=== PATIENT | male | born 1930 | race Caucasian/White ===

== ENCOUNTER 2021-06-30 13:45 | Inpatient (IN) | payer MEDICARE, BC ==
[2021-06-30 15:30] LABS: #Eosinphils 0.1 thou/uL (0.0-0.7); #Lymphocytes 1.8 thou/uL (1.20-3.40); #Monocytes 1.2 thou/uL (0.11-0.59); #Neutrophils 9.3 thou/uL (1.40-6.50); %Basophils 0.3 % (0.0-1.0); %Eosinophils 0.6 % (0.0-10.0); %Lymphocytes 14.6 % (21.0-51.0); %Monocytes 9.3 % (0.0-10.0); %Neutrophils 75.2 % (42.0-75.0); Hemoglobin 11.1 g/dL (14.0-18.0); Mean Corpuscular HGB CONC 31.7 g/dL (32.0-36.0); Mean Corpuscular Hemoglobin 31.3 pg (27.0-31.0); Mean Corpuscular Volume 98.7 fL (78.0-98.0); Mean Platelet Volume 6.7 fL (7.4-10.4); Platelet Count 466 thou/uL (130-400); RBC Distribution Width 16.2 % (11.5-14.5); Red Blood Cell (RBC) Count 3.53 mill/uL (4.70-6.10); White Blood Cell (WBC) Count 12.3 thou/uL (4.8-10.8)
[2021-06-30 16:00] LABS: ALT (SGPT) 63 U/L (8-55); AST (SGOT) 86 U/L (5-34); Albumin 2.5 g/dL (3.4-4.8); Alkaline Phosphatase 126 U/L (40-110); Anion Gap 18 mmol/L (10-20); Bilirubin, Total 0.6 mg/dL (0.2-1.2); Calc. Creatinine Clearance 0 mL/min (70-130); Calcium 8.5 mg/dL (7.8-10.44); Carbon Dioxide 30 mmol/L (23-31); Chloride 107 mmol/L (98-107); Globulin 3.9 g/dL (2.4-3.5); Glucose 186 mg/dL (83-110); Potassium 4.6 mmol/L (3.5-5.1); Protein, Total 6.4 g/dL (5.8-8.1); Sodium 150 mmol/L (136-145)
[2021-06-30 16:11] LABS: BUN (Urea Nitrogen) 126 mg/dL (8.4-25.7)
[2021-06-30] MEDS ORDERED: Lorazepam 2 MG/ML VIAL ONE (17:47)
[2021-06-30 18:01] LABS: SARS-CoV-2 NAA Rapid Test Not Detected (NotDetected)
[2021-06-30] MEDS ORDERED: Piperacillin/Tazobactam 3.375 GM VIAL ONE (18:37)
[2021-06-30 18:50] LABS: Bacteria/HPF 4+ HPF (None Seen); Bilirubin Negative (Negative); Blood, Urine 3+ (Negative); Clarity Extra Turbid (Clear); Glucose, Urine (Dipstick) Normal (Negative); Ketone, Urine Negative (Negative); Leukocyte 500 Leu/uL (Negative); Nitrite Negative (Negative); Protein, Urine (Dipstick) 50 mg/dL (Neg-Trace); RBC/HPF Greater than 50 HPF (0-3); Specific Gravity, Urine 1.008 (1.002-1.036); Squamous Epithelial None Seen HPF (0-3); Urobilinogen Normal mg/dL (Less than 2); WBC/HPF Greater than 50 HPF (0-3)
[2021-06-30] MEDS ORDERED: Sodium Chloride 0.9% 500 ML IV SCH ×2 (20:00→21:15)
[2021-06-30] MEDS ORDERED: Acetaminophen 325 MG TAB PO PRN (20:00)
[2021-06-30] MEDS ORDERED: Ondansetron ODT 4 MG TAB SL PRN (20:00)
[2021-06-30] MEDS ORDERED: Ondansetron PF 4 MG/2 ML Vial IVP PRN ×2 (20:00→20:25)
[2021-06-30] MEDS ORDERED: HumaLOG 300 UNITS/3 ML VIAL SC PRN (20:28)
[2021-06-30] MEDS ORDERED: Dextrose 5% in Water 1,000 ML IV PRN (20:28)
[2021-06-30] MEDS ORDERED: Dextrose 50% Abboject 50 ML SYRINGE SLOW IVP PRN (20:28)
[2021-06-30] MEDS ORDERED: Sodium Chloride 0.9% 1,000 ML IV SCH (20:30)
[2021-06-30] MEDS ORDERED: Pharmacy to Dose VANCOMYCIN AND MEROPENEM IVPB PRN (21:09)
[2021-06-30] MEDS ORDERED: Sodium Chloride 0.9% 500 ML IVPB SCH (21:30)
[2021-06-30] MEDS: Sodium Chloride 0.9% 1,000 ML IV SCH (22:00)
[2021-06-30] MEDS: Heparin 5,000 UNITS/ML VIAL SC SCH (22:36)
[2021-06-30] MEDS ORDERED: Piperacillin/Tazobactam 3.375 GM in Sodium Chloride 0.9% 100 ML IVPB SCH (23:00)
[2021-06-30] MEDS ORDERED: Meropenem 1 GM in Sodium Chloride 0.9% 100 ML IVPB SCH (23:00)
[2021-06-30] MEDS ORDERED: Vancomycin 1.5 GRAM/300 ML BAG 1.5 GM in Premix Bag 1 BAG IVPB SCH (23:59)
[2021-07-01 00:01] LABS: Lactic Acid 4.8 mmol/L (0.5-2.2)
[2021-07-01] MEDS ORDERED: Sodium Chloride 0.9% 500 ML IVPB SCH (02:30)
[2021-07-01] MEDS ORDERED: Norepinephrine 8 MG/0.9% NS 250 ML IVPB SCH (04:15)
[2021-07-01 04:16] LABS: Anion Gap 13 mmol/L (10-20); Calc. Creatinine Clearance 28 mL/min (70-130); Calcium 7.7 mg/dL (7.8-10.44); Carbon Dioxide 28 mmol/L (23-31); Chloride 114 mmol/L (98-107); Glucose 215 mg/dL (83-110); Sodium 151 mmol/L (136-145)
[2021-07-01 04:19] LABS: ALT (SGPT) 58 U/L (8-55); AST (SGOT) 78 U/L (5-34); Alkaline Phosphatase 116 U/L (40-110); Bilirubin, Direct 0.4 mg/dL (0.1-0.3); Bilirubin, Total 0.5 mg/dL (0.2-1.2); Lipase 12 U/L (8-78); Protein, Total 5.3 g/dL (5.8-8.1)
[2021-07-01 04:23] LABS: Band 8 % (5-11); Eosinophils 3 % (0-10); Hemoglobin 8.9 g/dL (14.0-18.0); Hypochromia SLIGHT = 6-15 cells (100X) (0-5/hpf); MDiff Complete? YES; Mean Corpuscular HGB CONC 31.6 g/dL (32.0-36.0); Mean Corpuscular Hemoglobin 31.5 pg (27.0-31.0); Mean Corpuscular Volume 99.5 fL (78.0-98.0); Mean Platelet Volume 6.6 fL (7.4-10.4); Monocytes 16 % (0-10); Neutrophil 73 % (42-75); Platelet Count 382 thou/uL (130-400); Platelet Morphology Comment Appears Adequate; RBC Distribution Width 16.4 % (11.5-14.5); Red Blood Cell (RBC) Count 2.82 mill/uL (4.70-6.10); White Blood Cell (WBC) Count 19.4 thou/uL (4.8-10.8)
[2021-07-01 04:27] LABS: BUN (Urea Nitrogen) 117 mg/dL (8.4-25.7)
[2021-07-01] MEDS ORDERED: Norepinephrine 8 MG in Dextrose 5% in Water 242 ML IVPB PRN (04:30)
[2021-07-01] MEDS: Heparin 5,000 UNITS/ML VIAL SC SCH ×3 (08:36→21:21)
[2021-07-01] MEDS: Dextrose 5 %-0.45 % NaCl 1,000 ML IV SCH ×3 (08:37→21:22)
[2021-07-01] MEDS: Meropenem 1 GM in Sodium Chloride 0.9% 100 ML IVPB SCH ×2 (09:21→21:20)
[2021-07-01] MEDS: Pantoprazole 40 MG VIAL IVP SCH (10:49)
[2021-07-01] MEDS: Sodium Chloride 0.9% 1,000 ML IV SCH (10:50)
[2021-07-02] MEDS: Vancomycin HCl 750 MG in Sodium Chloride 0.9% 250 ML 250 ML IVPB SCH ×2 (00:15→23:45)
[2021-07-02] MEDS: Dextrose 5 %-0.45 % NaCl 1,000 ML IV SCH ×4 (06:03→19:56)
[2021-07-02 07:00] LABS: #Eosinphils 0.2 thou/uL (0.0-0.7); #Lymphocytes 1.3 thou/uL (1.20-3.40); #Monocytes 0.9 thou/uL (0.11-0.59); %Basophils 0.1 % (0.0-1.0); %Eosinophils 2.3 % (0.0-10.0); %Lymphocytes 13.9 % (21.0-51.0); %Monocytes 9.3 % (0.0-10.0); %Neutrophils 74.4 % (42.0-75.0); Hemoglobin 8.7 g/dL (14.0-18.0); Mean Corpuscular HGB CONC 31.4 g/dL (32.0-36.0); Mean Corpuscular Hemoglobin 31.1 pg (27.0-31.0); Mean Corpuscular Volume 98.8 fL (78.0-98.0); Mean Platelet Volume 6.5 fL (7.4-10.4); Platelet Count 340 thou/uL (130-400); RBC Distribution Width 16.3 % (11.5-14.5); Red Blood Cell (RBC) Count 2.81 mill/uL (4.70-6.10); White Blood Cell (WBC) Count 9.4 thou/uL (4.8-10.8)
[2021-07-02 07:20] LABS: Anion Gap 14 mmol/L (10-20); BUN (Urea Nitrogen) 76 mg/dL (8.4-25.7); Calc. Creatinine Clearance 44 mL/min (70-130); Calcium 7.5 mg/dL (7.8-10.44); Carbon Dioxide 22 mmol/L (23-31); Chloride 118 mmol/L (98-107); Glucose 171 mg/dL (83-110); Sodium 151 mmol/L (136-145)
[2021-07-02 07:26] LABS: Potassium 2.9 mmol/L (3.5-5.1)
[2021-07-02] MEDS: Heparin 5,000 UNITS/ML VIAL SC SCH ×3 (09:23→20:01)
[2021-07-02] MEDS: Meropenem 1 GM in Sodium Chloride 0.9% 100 ML IVPB SCH ×2 (09:24→20:01)
[2021-07-02] MEDS: Pantoprazole 40 MG VIAL IVP SCH (10:42)
[2021-07-02] MEDS: Acetaminophen 325 MG TAB PO PRN (20:03)
[2021-07-02 23:24] LABS: Vancomycin, Trough 14.8 ug/mL
[2021-07-03] MEDS: Dextrose 5 %-0.45 % NaCl 1,000 ML IV SCH ×3 (03:16→22:22)
[2021-07-03 06:37] LABS: #Eosinphils 0.2 thou/uL (0.0-0.7); #Lymphocytes 1.9 thou/uL (1.20-3.40); #Monocytes 0.7 thou/uL (0.11-0.59); #Neutrophils 5.6 thou/uL (1.40-6.50); %Basophils 0.1 % (0.0-1.0); %Eosinophils 1.8 % (0.0-10.0); %Lymphocytes 22.3 % (21.0-51.0); %Monocytes 8.8 % (0.0-10.0); %Neutrophils 66.9 % (42.0-75.0); Mean Corpuscular HGB CONC 31.9 g/dL (32.0-36.0); Mean Corpuscular Hemoglobin 31.1 pg (27.0-31.0); Mean Corpuscular Volume 97.5 fL (78.0-98.0); Mean Platelet Volume 6.4 fL (7.4-10.4); Platelet Count 300 thou/uL (130-400); RBC Distribution Width 16.4 % (11.5-14.5); White Blood Cell (WBC) Count 8.3 thou/uL (4.8-10.8)
[2021-07-03 07:02] LABS: ALT (SGPT) 59 U/L (8-55); AST (SGOT) 69 U/L (5-34); Alkaline Phosphatase 111 U/L (40-110); Anion Gap 12 mmol/L (10-20); BUN (Urea Nitrogen) 41 mg/dL (8.4-25.7); Bilirubin, Total 0.5 mg/dL (0.2-1.2); Calc. Creatinine Clearance 64 mL/min (70-130); Calcium 7.2 mg/dL (7.8-10.44); Carbon Dioxide 22 mmol/L (23-31); Chloride 116 mmol/L (98-107); Globulin 3.1 g/dL (2.4-3.5); Glucose 115 mg/dL (83-110); Protein, Total 5.1 g/dL (5.8-8.1); Sodium 147 mmol/L (136-145)
[2021-07-03 07:06] LABS: Potassium 2.6 mmol/L (3.5-5.1)
[2021-07-03] MEDS: Heparin 5,000 UNITS/ML VIAL SC SCH ×3 (08:55→20:03)
[2021-07-03] MEDS: Meropenem 1 GM in Sodium Chloride 0.9% 100 ML IVPB SCH ×2 (09:07→20:02)
[2021-07-03] MEDS ORDERED: Potassium Chloride 40 MEQ in Sodium Chloride 0.9% 250 ML 250 ML IVPB SCH (09:20)
[2021-07-03] MEDS: Pantoprazole 40 MG VIAL IVP SCH (10:41)
[2021-07-03] MEDS: Vancomycin HCl 750 MG in Sodium Chloride 0.9% 250 ML 250 ML IVPB SCH (23:13)
[2021-07-04] MEDS: Acetaminophen 325 MG TAB PO PRN (00:05)
[2021-07-04] MEDS: Dextrose 5 %-0.45 % NaCl 1,000 ML IV SCH ×2 (06:47→13:33)
[2021-07-04 07:49] LABS: #Eosinphils 0.2 thou/uL (0.0-0.7); #Lymphocytes 1.8 thou/uL (1.20-3.40); #Monocytes 0.6 thou/uL (0.11-0.59); #Neutrophils 5.3 thou/uL (1.40-6.50); %Basophils 0.1 % (0.0-1.0); %Eosinophils 2.1 % (0.0-10.0); %Lymphocytes 23.5 % (21.0-51.0); %Monocytes 7.1 % (0.0-10.0); %Neutrophils 67.1 % (42.0-75.0); Hemoglobin 8.3 g/dL (14.0-18.0); Mean Corpuscular Hemoglobin 30.8 pg (27.0-31.0); Mean Corpuscular Volume 96.1 fL (78.0-98.0); Mean Platelet Volume 6.6 fL (7.4-10.4); Platelet Count 258 thou/uL (130-400); RBC Distribution Width 16.2 % (11.5-14.5); White Blood Cell (WBC) Count 7.8 thou/uL (4.8-10.8)
[2021-07-04] MEDS: Meropenem 1 GM in Sodium Chloride 0.9% 100 ML IVPB SCH (07:58)
[2021-07-04] MEDS: Pantoprazole 40 MG VIAL IVP SCH (07:59)
[2021-07-04] MEDS: Heparin 5,000 UNITS/ML VIAL SC SCH ×3 (08:00→20:09)
[2021-07-04 08:04] LABS: Anion Gap 10 mmol/L (10-20); BUN (Urea Nitrogen) 22 mg/dL (8.4-25.7); Calc. Creatinine Clearance 75 mL/min (70-130); Calcium 6.7 mg/dL (7.8-10.44); Carbon Dioxide 23 mmol/L (23-31); Chloride 114 mmol/L (98-107); Glucose 139 mg/dL (83-110); Sodium 144 mmol/L (136-145)
[2021-07-04 08:08] LABS: Potassium 2.7 mmol/L (3.5-5.1)
[2021-07-04] MEDS ORDERED: Electrolyte Replacement Protocol 1 EACH FS SCH (08:30)
[2021-07-04] MEDS: Potassium Chloride 40 MEQ in Sodium Chloride 0.9% 250 ML 250 ML IVPB SCH ×2 (10:03→13:33)
[2021-07-04] MEDS ORDERED: Meropenem 1 GM in Sodium Chloride 0.9% 100 ML IVPB SCH (16:00)
[2021-07-04] MEDS ORDERED: Potassium Chloride 20 MEQ TAB PO SCH (17:30)
[2021-07-04 23:33] LABS: Vancomycin, Trough 15.4 ug/mL
[2021-07-04] MEDS: Vancomycin HCl 750 MG in Sodium Chloride 0.9% 250 ML 250 ML IVPB SCH (23:47)
[2021-07-05] MEDS: Meropenem 1 GM in Sodium Chloride 0.9% 100 ML IVPB SCH ×3 (02:23→17:43)
[2021-07-05] MEDS: Dextrose 5 %-0.45 % NaCl 1,000 ML IV SCH ×4 (02:56→23:55)
[2021-07-05 06:43] LABS: #Eosinphils 0.2 thou/uL (0.0-0.7); #Lymphocytes 1.8 thou/uL (1.20-3.40); #Monocytes 0.8 thou/uL (0.11-0.59); #Neutrophils 7.6 thou/uL (1.40-6.50); %Basophils 0.1 % (0.0-1.0); %Eosinophils 1.6 % (0.0-10.0); %Lymphocytes 17.6 % (21.0-51.0); %Monocytes 7.8 % (0.0-10.0); %Neutrophils 72.9 % (42.0-75.0); Hemoglobin 8.5 g/dL (14.0-18.0); Mean Corpuscular HGB CONC 32.2 g/dL (32.0-36.0); Mean Corpuscular Hemoglobin 30.7 pg (27.0-31.0); Mean Corpuscular Volume 95.5 fL (78.0-98.0); Mean Platelet Volume 6.7 fL (7.4-10.4); Platelet Count 270 thou/uL (130-400); RBC Distribution Width 16.5 % (11.5-14.5); Red Blood Cell (RBC) Count 2.77 mill/uL (4.70-6.10); White Blood Cell (WBC) Count 10.4 thou/uL (4.8-10.8)
[2021-07-05 07:00] LABS: Anion Gap 9 mmol/L (10-20); BUN (Urea Nitrogen) 14 mg/dL (8.4-25.7); Calc. Creatinine Clearance 79 mL/min (70-130); Calcium 6.8 mg/dL (7.8-10.44); Carbon Dioxide 22 mmol/L (23-31); Chloride 116 mmol/L (98-107); Glucose 117 mg/dL (83-110); Potassium 3.7 mmol/L (3.5-5.1); Sodium 143 mmol/L (136-145)
[2021-07-05] MEDS: Heparin 5,000 UNITS/ML VIAL SC SCH ×3 (09:25→20:43)
[2021-07-05] MEDS: Pantoprazole 40 MG VIAL IVP SCH (09:26)
[2021-07-05] MEDS ORDERED: Potassium Chloride 20 MEQ TAB PO SCH (10:15)
[2021-07-06] MEDS: Vancomycin HCl 750 MG in Sodium Chloride 0.9% 250 ML 250 ML IVPB SCH ×2 (00:28→23:15)
[2021-07-06] MEDS: Dextrose 5 %-0.45 % NaCl 1,000 ML IV SCH ×3 (00:32→22:33)
[2021-07-06] MEDS: Meropenem 1 GM in Sodium Chloride 0.9% 100 ML IVPB SCH ×3 (02:13→18:28)
[2021-07-06 06:35] LABS: #Eosinphils 0.2 thou/uL (0.0-0.7); #Lymphocytes 2.3 thou/uL (1.20-3.40); #Monocytes 0.9 thou/uL (0.11-0.59); #Neutrophils 9.4 thou/uL (1.40-6.50); %Basophils 0.1 % (0.0-1.0); %Eosinophils 1.5 % (0.0-10.0); %Lymphocytes 17.6 % (21.0-51.0); %Monocytes 6.8 % (0.0-10.0); %Neutrophils 74.1 % (42.0-75.0); Hemoglobin 8.4 g/dL (14.0-18.0); Mean Corpuscular HGB CONC 32.5 g/dL (32.0-36.0); Mean Corpuscular Hemoglobin 31.4 pg (27.0-31.0); Mean Corpuscular Volume 96.3 fL (78.0-98.0); Mean Platelet Volume 6.4 fL (7.4-10.4); Platelet Count 282 thou/uL (130-400); RBC Distribution Width 16.6 % (11.5-14.5); Red Blood Cell (RBC) Count 2.69 mill/uL (4.70-6.10); White Blood Cell (WBC) Count 12.7 thou/uL (4.8-10.8)
[2021-07-06 07:02] LABS: Anion Gap 11 mmol/L (10-20); BUN (Urea Nitrogen) 10 mg/dL (8.4-25.7); Calc. Creatinine Clearance 76 mL/min (70-130); Calcium 7.1 mg/dL (7.8-10.44); Carbon Dioxide 19 mmol/L (23-31); Chloride 116 mmol/L (98-107); Glucose 128 mg/dL (83-110); Potassium 3.9 mmol/L (3.5-5.1); Sodium 142 mmol/L (136-145)
[2021-07-06] MEDS: Carvedilol 6.25 MG TAB PO SCH ×2 (08:46→16:52)
[2021-07-06] MEDS: Colchicine 0.6 MG TAB PO SCH (08:46)
[2021-07-06] MEDS: Allopurinol 100 MG TAB PO SCH (08:46)
[2021-07-06] MEDS: Pantoprazole 40 MG VIAL IVP SCH (08:50)
[2021-07-06] MEDS: Aspirin 81 mg Enteric Coated Tablet PO SCH (08:50)
[2021-07-06] MEDS: Heparin 5,000 UNITS/ML VIAL SC SCH ×3 (08:50→19:55)
[2021-07-07] MEDS: Meropenem 1 GM in Sodium Chloride 0.9% 100 ML IVPB SCH ×3 (01:35→18:40)
[2021-07-07] MEDS: Dextrose 5 %-0.45 % NaCl 1,000 ML IV SCH ×2 (02:09→14:08)
[2021-07-07] MEDS: Allopurinol 100 MG TAB PO SCH (08:55)
[2021-07-07] MEDS: Aspirin 81 mg Enteric Coated Tablet PO SCH (08:55)
[2021-07-07] MEDS: Carvedilol 6.25 MG TAB PO SCH ×2 (09:02→17:49)
[2021-07-07] MEDS: Colchicine 0.6 MG TAB PO SCH (09:05)
[2021-07-07] MEDS: Heparin 5,000 UNITS/ML VIAL SC SCH ×3 (09:05→21:33)
[2021-07-07] MEDS: Pantoprazole 40 MG VIAL IVP SCH (09:06)
[2021-07-07] MEDS ORDERED: BIOTENE MOUTH SPRAY 44.3 ML PO PRN (10:28)
[2021-07-07 11:07] LABS: #Eosinphils 0.1 thou/uL (0.0-0.7); #Lymphocytes 1.9 thou/uL (1.20-3.40); #Monocytes 1.4 thou/uL (0.11-0.59); #Neutrophils 12.5 thou/uL (1.40-6.50); %Basophils 0.3 % (0.0-1.0); %Eosinophils 0.8 % (0.0-10.0); %Lymphocytes 12.1 % (21.0-51.0); %Monocytes 8.6 % (0.0-10.0); %Neutrophils 78.2 % (42.0-75.0); Hemoglobin 7.8 g/dL (14.0-18.0); Mean Corpuscular HGB CONC 33.6 g/dL (32.0-36.0); Mean Corpuscular Volume 95.3 fL (78.0-98.0); Mean Platelet Volume 6.9 fL (7.4-10.4); Platelet Count 274 thou/uL (130-400); RBC Distribution Width 17.2 % (11.5-14.5); Red Blood Cell (RBC) Count 2.43 mill/uL (4.70-6.10)
[2021-07-07] MEDS ORDERED: Furosemide 20 MG/2 ML VIAL SLOW IVP SCH (17:30)
[2021-07-07] MEDS: Acetaminophen 325 MG TAB PO PRN (18:00)
[2021-07-07 23:26] LABS: Vancomycin, Trough 14.6 ug/mL
[2021-07-08] MEDS: Meropenem 1 GM in Sodium Chloride 0.9% 100 ML IVPB SCH ×3 (01:35→18:48)
[2021-07-08] MEDS: Vancomycin HCl 750 MG in Sodium Chloride 0.9% 250 ML 250 ML IVPB SCH ×2 (03:00→23:14)
[2021-07-08 07:59] LABS: #Basophils 0.1 thou/uL (0.0-0.2); #Eosinphils 0.1 thou/uL (0.0-0.7); #Lymphocytes 2.3 thou/uL (1.20-3.40); #Monocytes 1.7 thou/uL (0.11-0.59); #Neutrophils 15.1 thou/uL (1.40-6.50); %Basophils 0.3 % (0.0-1.0); %Eosinophils 0.6 % (0.0-10.0); %Lymphocytes 11.9 % (21.0-51.0); %Monocytes 8.9 % (0.0-10.0); %Neutrophils 78.3 % (42.0-75.0); Hemoglobin 7.8 g/dL (14.0-18.0); Mean Corpuscular HGB CONC 31.3 g/dL (32.0-36.0); Mean Corpuscular Hemoglobin 29.7 pg (27.0-31.0); Mean Corpuscular Volume 94.6 fL (78.0-98.0); Mean Platelet Volume 6.9 fL (7.4-10.4); Platelet Count 349 thou/uL (130-400); RBC Distribution Width 16.8 % (11.5-14.5); Red Blood Cell (RBC) Count 2.63 mill/uL (4.70-6.10); White Blood Cell (WBC) Count 19.3 thou/uL (4.8-10.8)
[2021-07-08] MEDS: Heparin 5,000 UNITS/ML VIAL SC SCH ×3 (09:06→20:05)
[2021-07-08] MEDS: Allopurinol 100 MG TAB PO SCH (09:06)
[2021-07-08] MEDS: Aspirin 81 mg Enteric Coated Tablet PO SCH (09:06)
[2021-07-08] MEDS: Carvedilol 6.25 MG TAB PO SCH ×2 (09:06→18:10)
[2021-07-08] MEDS: Colchicine 0.6 MG TAB PO SCH (09:07)
[2021-07-08] MEDS: Pantoprazole 40 MG VIAL IVP SCH (09:08)
[2021-07-08] MEDS: HumaLOG 300 UNITS/3 ML VIAL SC PRN ×2 (11:50→16:19)
[2021-07-08] MEDS: Fluconazole In NaCl,Iso-Osm 400 MG in Premix Bag 1 BAG IVPB SCH (16:18)
[2021-07-08] MEDS: Losartan 25 MG TAB PO SCH (20:05)
[2021-07-09] MEDS: Acetaminophen 325 MG TAB PO PRN ×2 (00:59→20:19)
[2021-07-09] MEDS: Meropenem 1 GM in Sodium Chloride 0.9% 100 ML IVPB SCH ×3 (02:12→18:15)
[2021-07-09] MEDS ORDERED: Furosemide 20 MG/2 ML VIAL SLOW IVP SCH (09:15)
[2021-07-09] MEDS: Heparin 5,000 UNITS/ML VIAL SC SCH ×3 (09:33→20:22)
[2021-07-09] MEDS: Aspirin 81 mg Enteric Coated Tablet PO SCH (09:33)
[2021-07-09] MEDS: Colchicine 0.6 MG TAB PO SCH (09:33)
[2021-07-09] MEDS: Carvedilol 6.25 MG TAB PO SCH ×2 (09:33→17:29)
[2021-07-09] MEDS: Allopurinol 100 MG TAB PO SCH (09:33)
[2021-07-09] MEDS: Losartan 25 MG TAB PO SCH ×2 (09:33→20:22)
[2021-07-09 09:38] LABS: #Eosinphils 0.1 thou/uL (0.0-0.7); #Lymphocytes 1.8 thou/uL (1.20-3.40); #Monocytes 1.5 thou/uL (0.11-0.59); #Neutrophils 11.2 thou/uL (1.40-6.50); %Basophils 0.2 % (0.0-1.0); %Eosinophils 0.6 % (0.0-10.0); %Lymphocytes 12.2 % (21.0-51.0); %Monocytes 10.1 % (0.0-10.0); Hemoglobin 7.3 g/dL (14.0-18.0); Mean Corpuscular HGB CONC 32.2 g/dL (32.0-36.0); Mean Corpuscular Hemoglobin 30.7 pg (27.0-31.0); Mean Corpuscular Volume 95.4 fL (78.0-98.0); Mean Platelet Volume 6.7 fL (7.4-10.4); Platelet Count 318 thou/uL (130-400); RBC Distribution Width 17.1 % (11.5-14.5); Red Blood Cell (RBC) Count 2.36 mill/uL (4.70-6.10); White Blood Cell (WBC) Count 14.5 thou/uL (4.8-10.8)
[2021-07-09] MEDS: Pantoprazole 40 MG VIAL IVP SCH (09:43)
[2021-07-09 10:58] LABS: SARS-CoV-2 PCR by NAA Not Detected (NotDetected)
[2021-07-09] MEDS: HumaLOG 300 UNITS/3 ML VIAL SC PRN (13:04)
[2021-07-09] MEDS ORDERED: Nystatin Powder 15 GM BOT TOP PRN (13:07)
[2021-07-09] MEDS: Fluconazole In NaCl,Iso-Osm 400 MG in Premix Bag 1 BAG IVPB SCH (15:52)
[2021-07-09] MEDS: Vancomycin HCl 750 MG in Sodium Chloride 0.9% 250 ML 250 ML IVPB SCH (23:42)
[2021-07-09 23:52] LABS: Vancomycin, Trough 18.5 ug/mL
[2021-07-10] MEDS: Meropenem 1 GM in Sodium Chloride 0.9% 100 ML IVPB SCH ×2 (02:43→08:29)
[2021-07-10 05:54] LABS: #Eosinphils 0.1 thou/uL (0.0-0.7); #Lymphocytes 1.9 thou/uL (1.20-3.40); #Monocytes 1.4 thou/uL (0.11-0.59); #Neutrophils 9.8 thou/uL (1.40-6.50); %Basophils 0.3 % (0.0-1.0); %Eosinophils 0.7 % (0.0-10.0); %Lymphocytes 14.3 % (21.0-51.0); %Monocytes 10.3 % (0.0-10.0); %Neutrophils 74.3 % (42.0-75.0); Hemoglobin 7.3 g/dL (14.0-18.0); Mean Corpuscular HGB CONC 32.9 g/dL (32.0-36.0); Mean Corpuscular Hemoglobin 31.3 pg (27.0-31.0); Mean Corpuscular Volume 95.2 fL (78.0-98.0); Mean Platelet Volume 6.6 fL (7.4-10.4); Platelet Count 371 thou/uL (130-400); RBC Distribution Width 16.8 % (11.5-14.5); Red Blood Cell (RBC) Count 2.32 mill/uL (4.70-6.10); White Blood Cell (WBC) Count 13.2 thou/uL (4.8-10.8)
[2021-07-10 06:13] LABS: ALT (SGPT) 29 U/L (8-55); AST (SGOT) 56 U/L (5-34); Albumin 1.9 g/dL (3.4-4.8); Alkaline Phosphatase 136 U/L (40-110); Anion Gap 9 mmol/L (10-20); BUN (Urea Nitrogen) 19 mg/dL (8.4-25.7); Bilirubin, Total 0.4 mg/dL (0.2-1.2); Calc. Creatinine Clearance 57 mL/min (70-130); Calcium 6.8 mg/dL (7.8-10.44); Carbon Dioxide 19 mmol/L (23-31); Chloride 114 mmol/L (98-107); Globulin 3.3 g/dL (2.4-3.5); Glucose 119 mg/dL (83-110); Protein, Total 5.2 g/dL (5.8-8.1); Sodium 139 mmol/L (136-145)
[2021-07-10] MEDS ORDERED: Potassium Chloride 20 MEQ TAB PO SCH ×2 (07:00→10:45)
[2021-07-10] MEDS: Heparin 5,000 UNITS/ML VIAL SC SCH ×3 (08:30→20:37)
[2021-07-10] MEDS: Aspirin 81 mg Enteric Coated Tablet PO SCH (08:30)
[2021-07-10] MEDS: Carvedilol 6.25 MG TAB PO SCH ×2 (08:30→15:32)
[2021-07-10] MEDS: Losartan 25 MG TAB PO SCH ×2 (08:30→20:37)
[2021-07-10] MEDS: Allopurinol 100 MG TAB PO SCH (08:30)
[2021-07-10] MEDS: Colchicine 0.6 MG TAB PO SCH (08:30)
[2021-07-10] MEDS: Pantoprazole 40 MG VIAL IVP SCH (08:32)
[2021-07-10] MEDS: Ciprofloxacin 500 MG TAB PO SCH (20:37)
[2021-07-11 02:39] VITALS: BMI 25.8
[2021-07-11] MEDS: Acetaminophen 325 MG TAB PO PRN (06:07)
[2021-07-11] MEDS: Ciprofloxacin 500 MG TAB PO SCH (06:08)
[2021-07-11] MEDS: Carvedilol 6.25 MG TAB PO SCH ×2 (07:55→15:36)
[2021-07-11] MEDS: Allopurinol 100 MG TAB PO SCH (07:55)
[2021-07-11] MEDS: Heparin 5,000 UNITS/ML VIAL SC SCH ×2 (07:55→15:36)
[2021-07-11] MEDS: Pantoprazole 40 MG VIAL IVP SCH (07:55)
[2021-07-11] MEDS: Colchicine 0.6 MG TAB PO SCH (07:55)
[2021-07-11] MEDS: Aspirin 81 mg Enteric Coated Tablet PO SCH (07:55)
[2021-07-11] MEDS: Losartan 25 MG TAB PO SCH (07:56)
[2021-07-11 08:40] LABS: #Eosinphils 0.1 thou/uL (0.0-0.7); #Lymphocytes 1.7 thou/uL (1.20-3.40); #Monocytes 1.1 thou/uL (0.11-0.59); #Neutrophils 8.5 thou/uL (1.40-6.50); %Basophils 0.2 % (0.0-1.0); %Eosinophils 1.2 % (0.0-10.0); %Monocytes 9.2 % (0.0-10.0); %Neutrophils 74.5 % (42.0-75.0); Hemoglobin 7.4 g/dL (14.0-18.0); Mean Corpuscular HGB CONC 31.2 g/dL (32.0-36.0); Mean Corpuscular Hemoglobin 29.5 pg (27.0-31.0); Mean Corpuscular Volume 94.5 fL (78.0-98.0); Mean Platelet Volume 6.5 fL (7.4-10.4); Platelet Count 448 thou/uL (130-400); RBC Distribution Width 16.7 % (11.5-14.5); Red Blood Cell (RBC) Count 2.51 mill/uL (4.70-6.10); White Blood Cell (WBC) Count 11.5 thou/uL (4.8-10.8)
[2021-07-11 10:23] LABS: Anion Gap 14 mmol/L (10-20); BUN (Urea Nitrogen) 19 mg/dL (8.4-25.7); Calc. Creatinine Clearance 70 mL/min (70-130); Carbon Dioxide 13 mmol/L (23-31); Chloride 118 mmol/L (98-107); Glucose 116 mg/dL (83-110); Potassium 3.4 mmol/L (3.5-5.1); Sodium 142 mmol/L (136-145)
[2021-07-11] MEDS ORDERED: Potassium Chloride 20 MEQ TAB PO SCH (10:45)
[2021-07-11 15:45] VITALS: BP 167/71; TEMP 98
== END 2021-07-11 17:32 | disposition home or self-care (01) | DRG 853 ==
LOC: ERS 13:45 → IMCU/EMU 18:49 → CCU 07-01 04:31 → T4-B 07-01 17:31
PROVIDERS: ADMIT Internal Medicine; ATTEND Internal Medicine
PROC: 0LBV0ZZ Excision of Right Foot Tendon, Open Approach (ICD-10-PCS; principal; 2021-07-05)
PROC: 0JB70ZZ Excision of Back Subcutaneous Tissue and Fascia, Open Approach (ICD-10-PCS; 2021-07-05)
DX: A41.59 Other Gram-negative sepsis (principal); L89.154 Pressure ulcer of sacral region, stage 4; Z20.822 Contact with and (suspected) exposure to COVID-19; Z66 Do not resuscitate; G93.41 Metabolic encephalopathy; R57.1 Hypovolemic shock; S32.049A Unspecified fracture of fourth lumbar vertebra, initial encounter for closed fracture; N39.0 Urinary tract infection, site not specified; E87.2 Acidosis; N17.9 Acute kidney failure, unspecified; I50.22 Chronic systolic (congestive) heart failure; I13.0 Hypertensive heart and chronic kidney disease with heart failure and stage 1 through stage 4 chronic kidney disease, or unspecified chronic kidney disease; I82.612 Acute embolism and thrombosis of superficial veins of left upper extremity; M86.8X6 Other osteomyelitis, lower leg; J90 Pleural effusion, not elsewhere classified; A41.81 Sepsis due to Enterococcus; L89.629 Pressure ulcer of left heel, unspecified stage; L89.611 Pressure ulcer of right heel, stage 1; E53.8 Deficiency of other specified B group vitamins; R74.01 Elevation of levels of liver transaminase levels; D63.1 Anemia in chronic kidney disease; I48.0 Paroxysmal atrial fibrillation; E11.22 Type 2 diabetes mellitus with diabetic chronic kidney disease; M10.9 Gout, unspecified; F03.90 Unspecified dementia, unspecified severity, without behavioral disturbance, psychotic disturbance, mood disturbance, and anxiety; Z96.641 Presence of right artificial hip joint; N18.9 Chronic kidney disease, unspecified; E86.1 Hypovolemia; R68.2 Dry mouth, unspecified; I25.5 Ischemic cardiomyopathy; E11.69 Type 2 diabetes mellitus with other specified complication; X58.XXXA Exposure to other specified factors, initial encounter; Z87.891 Personal history of nicotine dependence; Z91.041 Radiographic dye allergy status; Z79.84 Long term (current) use of oral hypoglycemic drugs; Z79.82 Long term (current) use of aspirin; Z79.899 Other long term (current) drug therapy; Z82.49 Family history of ischemic heart disease and other diseases of the circulatory system; Z85.46 Personal history of malignant neoplasm of prostate; Z90.79 Acquired absence of other genital organ(s); Z74.01 Bed confinement status; Z78.1 Physical restraint status
CPT/HCPCS: 36415; 36416; 51702; 70450; 70551; 71045; 71250; 74177; 80048; 80053; 80076; 80202; 81003; 81015; 83605; 83690; 84145; 84484; 85025; 87040; 87045; 87046; 87070; 87077; 87086; 87186; 87205; 87324; 87427; 87449; 93005; 96365; 96375; C9113; J1450; J1644; J1815; J1940; J2060; J2185; J2543; J3370; J3480; J3490; J7030; J7042; J7050; J7070; U0002; U0003; U0005

== ENCOUNTER 2021-07-18 10:49 | Inpatient (IN) | payer MEDICARE, BC ==
[2021-07-18 11:18] LABS: #Eosinphils 0.5 thou/uL (0.0-0.7); #Lymphocytes 1.7 thou/uL (1.20-3.40); #Monocytes 0.9 thou/uL (0.11-0.59); #Neutrophils 6.3 thou/uL (1.40-6.50); %Basophils 0.3 % (0.0-1.0); %Eosinophils 5.1 % (0.0-10.0); %Lymphocytes 18.3 % (21.0-51.0); %Monocytes 9.8 % (0.0-10.0); %Neutrophils 66.6 % (42.0-75.0); Hemoglobin 9.2 g/dL (14.0-18.0); Mean Corpuscular HGB CONC 32.5 g/dL (32.0-36.0); Mean Corpuscular Hemoglobin 31.1 pg (27.0-31.0); Mean Corpuscular Volume 95.8 fL (78.0-98.0); Mean Platelet Volume 5.8 fL (7.4-10.4); Platelet Count 588 thou/uL (130-400); RBC Distribution Width 17.3 % (11.5-14.5); Red Blood Cell (RBC) Count 2.95 mill/uL (4.70-6.10); White Blood Cell (WBC) Count 9.5 thou/uL (4.8-10.8)
[2021-07-18 11:39] LABS: ALT (SGPT) 21 U/L (8-55); AST (SGOT) 42 U/L (5-34); Albumin 2.2 g/dL (3.4-4.8); Alkaline Phosphatase 158 U/L (40-110); Anion Gap 12 mmol/L (10-20); BUN (Urea Nitrogen) 20 mg/dL (8.4-25.7); Bilirubin, Total 0.3 mg/dL (0.2-1.2); Calc. Creatinine Clearance 0 mL/min (70-130); Calcium 7.7 mg/dL (7.8-10.44); Carbon Dioxide 24 mmol/L (23-31); Chloride 111 mmol/L (98-107); Globulin 3.1 g/dL (2.4-3.5); Glucose 76 mg/dL (83-110); Potassium 3.2 mmol/L (3.5-5.1); Protein, Total 5.3 g/dL (5.8-8.1); Sodium 144 mmol/L (136-145)
[2021-07-18] MEDS ORDERED: Fentanyl 100 MCG/2 ML VIAL ONE (12:07)
[2021-07-18] MEDS ORDERED: Potassium Chloride 30 MEQ in Sodium Chloride 0.9% 250 ML 250 ML IVPB SCH (12:30)
[2021-07-18 12:42] LABS: Magnesium 1.1 mg/dL (1.6-2.6)
[2021-07-18 14:49] LABS: Troponin I 0.042 ng/mL (< 0.028)
[2021-07-18 18:00] LABS: Troponin I 0.017 ng/mL (< 0.028)
[2021-07-18] MEDS ORDERED: Acetaminophen 325 MG TAB PO PRN (19:30)
[2021-07-18] MEDS ORDERED: Ondansetron PF 4 MG/2 ML Vial IVP PRN (19:30)
[2021-07-18] MEDS ORDERED: Ondansetron ODT 4 MG TAB SL PRN (19:30)
[2021-07-18] MEDS ORDERED: Nitroglycerin 0.4 MG TAB (25 Tab Bottle) SL PRN (22:49)
[2021-07-18] MEDS ORDERED: Aspirin Chewable 81 MG TAB PO SCH (23:00)
[2021-07-19 00:32] LABS: Troponin I 0.012 ng/mL (< 0.028)
[2021-07-19] MEDS ORDERED: Dextrose 5% in Water 1,000 ML IV PRN (01:01)
[2021-07-19] MEDS ORDERED: Dextrose 50% Abboject 50 ML SYRINGE SLOW IVP PRN (01:01)
[2021-07-19] MEDS ORDERED: Electrolyte Replacement Protocol 1 EACH FS PRN (01:15)
[2021-07-19] MEDS ORDERED: Magnesium 2 GM/50 ML 2 GM in Premix Bag 1 BAG IVPB SCH (01:15)
[2021-07-19] MEDS ORDERED: Ciprofloxacin 500 MG TAB PO SCH (02:00)
[2021-07-19 02:56] LABS: #Lymphocytes 1.3 thou/uL (1.20-3.40); #Monocytes 1.9 thou/uL (0.11-0.59); #Neutrophils 12.7 thou/uL (1.40-6.50); %Eosinophils 0.3 % (0.0-10.0); %Lymphocytes 8.2 % (21.0-51.0); %Neutrophils 79.5 % (42.0-75.0); Mean Corpuscular HGB CONC 31.2 g/dL (32.0-36.0); Mean Corpuscular Hemoglobin 30.7 pg (27.0-31.0); Mean Corpuscular Volume 98.4 fL (78.0-98.0); Mean Platelet Volume 6.2 fL (7.4-10.4); Platelet Count 450 thou/uL (130-400); RBC Distribution Width 17.4 % (11.5-14.5); Red Blood Cell (RBC) Count 2.91 mill/uL (4.70-6.10); White Blood Cell (WBC) Count 15.9 thou/uL (4.8-10.8)
[2021-07-19 03:03] LABS: Troponin I 0.015 ng/mL (< 0.028)
[2021-07-19 03:07] LABS: Anion Gap 14 mmol/L (10-20); BUN (Urea Nitrogen) 20 mg/dL (8.4-25.7); Calc. Creatinine Clearance 71 mL/min (70-130); Calcium 7.3 mg/dL (7.8-10.44); Carbon Dioxide 20 mmol/L (23-31); Cardiac Risk 8.7 (Less than 4.5); Chloride 113 mmol/L (98-107); Cholesterol 96 mg/dl (< 200 Desired); Glucose 101 mg/dL (83-110); HDL Cholesterol 11 mg/dL (>60 Neg Risk); LDL Cholesterol, Calculated 58 mg/dL; Potassium 3.9 mmol/L (3.5-5.1); Sodium 143 mmol/L (136-145); Triglycerides 135 mg/dL (Less than 150)
[2021-07-19 07:16] LABS: Bacteria/HPF None Seen HPF (None Seen); Bilirubin Negative (Negative); Blood, Urine Negative (Negative); Clarity Clear (Clear); Glucose, Urine (Dipstick) Normal (Negative); Ketone, Urine Negative (Negative); Leukocyte Negative Leu/uL (Negative); Nitrite Negative (Negative); Protein, Urine (Dipstick) Negative (Neg-Trace); RBC/HPF 0-3 HPF (0-3); Specific Gravity, Urine 1.012 (1.002-1.036); Squamous Epithelial 0-3 HPF (0-3); Urobilinogen Normal mg/dL (Less than 2); WBC/HPF 0-3 HPF (0-3)
[2021-07-19] MEDS: Folic Acid 1 MG TAB PO SCH (08:54)
[2021-07-19] MEDS: Losartan 25 MG TAB PO SCH ×2 (08:54→21:55)
[2021-07-19] MEDS: Allopurinol 100 MG TAB PO SCH (08:54)
[2021-07-19] MEDS: Aspirin 81 mg Enteric Coated Tablet PO SCH (08:54)
[2021-07-19] MEDS: Carvedilol 25 MG TAB PO SCH ×2 (08:54→17:12)
[2021-07-19] MEDS: Vitamin E 400 UNITS CAP PO SCH (08:55)
[2021-07-19] MEDS: Alogliptin 25 MG TAB PO SCH (08:57)
[2021-07-19] MEDS ORDERED: CADEXOMER IODINE TOP SCH ×2 (09:00→21:00)
[2021-07-19] MEDS ORDERED: FLU VACC QS2021-22(65YR UP)/PF 240 MCG/0.7 ML SYRINGE IM ONE (09:00)
[2021-07-19] MEDS ORDERED: Aspirin Chewable 81 MG TAB PO SCH (09:00)
[2021-07-19 11:23] LABS: SARS-CoV-2 PCR by NAA Not Detected (NotDetected)
[2021-07-19] MEDS ORDERED: Vancomycin 1.5 GRAM/300 ML BAG 1.5 GM in Premix Bag 1 BAG IVPB SCH (14:00)
[2021-07-19] MEDS: predniSONE 50 MG TAB PO SCH (21:56)
[2021-07-19] MEDS: Ciprofloxacin 500 MG TAB PO SCH (21:56)
[2021-07-20] MEDS: predniSONE 50 MG TAB PO SCH ×2 (02:49→08:44)
[2021-07-20] MEDS: Ciprofloxacin 500 MG TAB PO SCH (06:21)
[2021-07-20] MEDS: HumaLOG 300 UNITS/3 ML VIAL SC PRN ×4 (07:29→21:31)
[2021-07-20] MEDS ORDERED: diphenhydrAMINE 50 MG CAP PO SCH (08:00)
[2021-07-20] MEDS: Alogliptin 25 MG TAB PO SCH (08:44)
[2021-07-20] MEDS: Folic Acid 1 MG TAB PO SCH (08:44)
[2021-07-20] MEDS: Allopurinol 100 MG TAB PO SCH (08:44)
[2021-07-20] MEDS: Carvedilol 25 MG TAB PO SCH ×2 (08:44→17:01)
[2021-07-20] MEDS: Vitamin E 400 UNITS CAP PO SCH (08:45)
[2021-07-20] MEDS: Losartan 25 MG TAB PO SCH (08:45)
[2021-07-20] MEDS ORDERED: Iopamidol-370 76% 500 ML 1 ML ONE (08:57)
[2021-07-20] MEDS: [UNRECOGNIZED DRUG - OTHER] PO SCH (10:15)
[2021-07-20] MEDS: PHYTOSTEROL PO SCH (10:15)
[2021-07-20] MEDS: [UNRECOGNIZED DRUG - OTHER] PO SCH (10:16)
[2021-07-20] MEDS: VANCOMYCIN 1.25 GM/250 ML BAG 1.25 GM in Premix Bag 1 BAG IVPB SCH (14:27)
[2021-07-20] MEDS ORDERED: Lactated Ringer's 250 ML IV SCH (18:00)
[2021-07-20] MEDS ORDERED: Piperacillin/Tazobactam 3.375 GM in Sodium Chloride 0.9% 100 ML IVPB SCH (18:15)
[2021-07-20 19:34] LABS: Legionella Urinary Ag Negative (Negative); Strep pneumo Urine Ag NEGATIVE (NEGATIVE)
[2021-07-20] MEDS ORDERED: Lantus 1000 UNITS/10 ML VIAL SC SCH (21:00)
[2021-07-20] MEDS: Piperacillin/Tazobactam 3.375 GM in Sodium Chloride 0.9% 100 ML IVPB SCH (21:30)
[2021-07-20] MEDS: Enoxaparin Sodium 40 MG/0.4 ML SYRINGE SC SCH (21:31)
[2021-07-21] MEDS: Piperacillin/Tazobactam 3.375 GM in Sodium Chloride 0.9% 100 ML IVPB SCH ×3 (05:37→22:00)
[2021-07-21] MEDS: HumaLOG 300 UNITS/3 ML VIAL SC PRN ×3 (06:17→17:14)
[2021-07-21 07:42] LABS: #Monocytes 0.7 thou/uL (0.11-0.59); #Neutrophils 13.2 thou/uL (1.40-6.50); %Basophils 0.2 % (0.0-1.0); %Eosinophils 0.1 % (0.0-10.0); %Lymphocytes 6.7 % (21.0-51.0); %Monocytes 4.9 % (0.0-10.0); Hemoglobin 8.6 g/dL (14.0-18.0); Mean Corpuscular HGB CONC 31.1 g/dL (32.0-36.0); Mean Corpuscular Hemoglobin 30.9 pg (27.0-31.0); Mean Corpuscular Volume 99.3 fL (78.0-98.0); Mean Platelet Volume 6.3 fL (7.4-10.4); Platelet Count 490 thou/uL (130-400); Red Blood Cell (RBC) Count 2.79 mill/uL (4.70-6.10)
[2021-07-21 08:01] LABS: ALT (SGPT) 21 U/L (8-55); AST (SGOT) 30 U/L (5-34); Alkaline Phosphatase 144 U/L (40-110); Anion Gap 15 mmol/L (10-20); BUN (Urea Nitrogen) 34 mg/dL (8.4-25.7); Bilirubin, Total 0.4 mg/dL (0.2-1.2); Calc. Creatinine Clearance 44 mL/min (70-130); Calcium 7.2 mg/dL (7.8-10.44); Carbon Dioxide 19 mmol/L (23-31); Chloride 107 mmol/L (98-107); Globulin 3.2 g/dL (2.4-3.5); Glucose 224 mg/dL (83-110); Potassium 3.5 mmol/L (3.5-5.1); Protein, Total 5.2 g/dL (5.8-8.1); Sodium 137 mmol/L (136-145)
[2021-07-21] MEDS: Folic Acid 1 MG TAB PO SCH (08:53)
[2021-07-21] MEDS: Aspirin 81 mg Enteric Coated Tablet PO SCH (08:53)
[2021-07-21] MEDS: Allopurinol 100 MG TAB PO SCH (08:53)
[2021-07-21] MEDS ORDERED: Losartan 25 MG TAB PO SCH (09:00)
[2021-07-21] MEDS ORDERED: Potassium Chloride 20 MEQ TAB PO SCH (09:00)
[2021-07-21] MEDS: Vitamin E 400 UNITS CAP PO SCH (13:12)
[2021-07-21 14:01] LABS: Vancomycin, Trough 20.7 ug/mL
[2021-07-21] MEDS ORDERED: Lantus 1000 UNITS/10 ML VIAL SC SCH (15:13)
[2021-07-21] MEDS: VANCOMYCIN 1.25 GM/250 ML BAG 1.25 GM in Premix Bag 1 BAG IVPB SCH (18:32)
[2021-07-21] MEDS ORDERED: VANCOMYCIN 1.25 GM/250 ML BAG 1.25 GM in Premix Bag 1 BAG IVPB SCH (20:00)
[2021-07-21] MEDS: Enoxaparin Sodium 40 MG/0.4 ML SYRINGE SC SCH (20:05)
[2021-07-22 05:56] LABS: #Eosinphils 0.1 thou/uL (0.0-0.7); #Lymphocytes 1.8 thou/uL (1.20-3.40); #Monocytes 1.1 thou/uL (0.11-0.59); #Neutrophils 10.6 thou/uL (1.40-6.50); %Basophils 0.2 % (0.0-1.0); %Eosinophils 0.6 % (0.0-10.0); %Lymphocytes 13.4 % (21.0-51.0); %Monocytes 7.7 % (0.0-10.0); %Neutrophils 78.1 % (42.0-75.0); Hemoglobin 8.2 g/dL (14.0-18.0); Mean Corpuscular HGB CONC 31.9 g/dL (32.0-36.0); Mean Corpuscular Hemoglobin 30.8 pg (27.0-31.0); Mean Corpuscular Volume 96.7 fL (78.0-98.0); Mean Platelet Volume 6.4 fL (7.4-10.4); Platelet Count 471 thou/uL (130-400); RBC Distribution Width 16.8 % (11.5-14.5); Red Blood Cell (RBC) Count 2.67 mill/uL (4.70-6.10); White Blood Cell (WBC) Count 13.6 thou/uL (4.8-10.8)
[2021-07-22] MEDS: Piperacillin/Tazobactam 3.375 GM in Sodium Chloride 0.9% 100 ML IVPB SCH ×3 (06:10→22:52)
[2021-07-22 06:17] LABS: ALT (SGPT) 42 U/L (8-55); AST (SGOT) 82 U/L (5-34); Albumin 1.9 g/dL (3.4-4.8); Alkaline Phosphatase 132 U/L (40-110); Anion Gap 12 mmol/L (10-20); BUN (Urea Nitrogen) 34 mg/dL (8.4-25.7); Bilirubin, Total 0.4 mg/dL (0.2-1.2); Calc. Creatinine Clearance 46 mL/min (70-130); Calcium 7.3 mg/dL (7.8-10.44); Carbon Dioxide 23 mmol/L (23-31); Chloride 109 mmol/L (98-107); Globulin 2.9 g/dL (2.4-3.5); Glucose 75 mg/dL (83-110); Potassium 3.1 mmol/L (3.5-5.1); Protein, Total 4.8 g/dL (5.8-8.1); Sodium 141 mmol/L (136-145)
[2021-07-22] MEDS ORDERED: Potassium Chloride 40 MEQ in Sodium Chloride 0.9% 500 ML IVPB SCH (08:30)
[2021-07-22] MEDS: Vitamin E 400 UNITS CAP PO SCH (09:01)
[2021-07-22] MEDS: Aspirin 81 mg Enteric Coated Tablet PO SCH (09:02)
[2021-07-22] MEDS: Folic Acid 1 MG TAB PO SCH (09:02)
[2021-07-22] MEDS: Allopurinol 100 MG TAB PO SCH (09:02)
[2021-07-22 10:01] VITALS: BMI 23.6
[2021-07-22] MEDS ORDERED: Dextrose 5 % And 0.9 % NaCl 1,000 ML IV SCH (12:30)
[2021-07-22] MEDS: Lantus 1000 UNITS/10 ML VIAL SC SCH (22:52)
[2021-07-22] MEDS: Enoxaparin Sodium 40 MG/0.4 ML SYRINGE SC SCH (22:53)
[2021-07-23] MEDS: Piperacillin/Tazobactam 3.375 GM in Sodium Chloride 0.9% 100 ML IVPB SCH ×2 (06:08→14:06)
[2021-07-23 06:26] LABS: #Basophils 0.2 thou/uL (0.0-0.2); #Eosinphils 0.3 thou/uL (0.0-0.7); #Lymphocytes 1.3 thou/uL (1.20-3.40); #Monocytes 0.9 thou/uL (0.11-0.59); #Neutrophils 7.2 thou/uL (1.40-6.50); %Basophils 1.9 % (0.0-1.0); %Eosinophils 3.2 % (0.0-10.0); %Lymphocytes 12.8 % (21.0-51.0); %Monocytes 8.6 % (0.0-10.0); %Neutrophils 73.4 % (42.0-75.0); Hemoglobin 8.5 g/dL (14.0-18.0); Mean Corpuscular HGB CONC 30.9 g/dL (32.0-36.0); Mean Corpuscular Hemoglobin 29.7 pg (27.0-31.0); Mean Corpuscular Volume 96.2 fL (78.0-98.0); Mean Platelet Volume 6.4 fL (7.4-10.4); Platelet Count 447 thou/uL (130-400); RBC Distribution Width 16.8 % (11.5-14.5); Red Blood Cell (RBC) Count 2.85 mill/uL (4.70-6.10); White Blood Cell (WBC) Count 9.8 thou/uL (4.8-10.8)
[2021-07-23 06:43] LABS: ALT (SGPT) 64 U/L (8-55); AST (SGOT) 95 U/L (5-34); Albumin 1.9 g/dL (3.4-4.8); Alkaline Phosphatase 151 U/L (40-110); Anion Gap 12 mmol/L (10-20); BUN (Urea Nitrogen) 25 mg/dL (8.4-25.7); Bilirubin, Total 0.4 mg/dL (0.2-1.2); Calc. Creatinine Clearance 59 mL/min (70-130); Calcium 7.3 mg/dL (7.8-10.44); Carbon Dioxide 22 mmol/L (23-31); Chloride 110 mmol/L (98-107); Glucose 94 mg/dL (83-110); Potassium 3.5 mmol/L (3.5-5.1); Protein, Total 4.9 g/dL (5.8-8.1); Sodium 140 mmol/L (136-145)
[2021-07-23] MEDS ORDERED: Potassium Chloride 20 MEQ TAB PO SCH (08:00)
[2021-07-23] MEDS: Folic Acid 1 MG TAB PO SCH (08:14)
[2021-07-23] MEDS: Allopurinol 100 MG TAB PO SCH (08:14)
[2021-07-23] MEDS: Aspirin 81 mg Enteric Coated Tablet PO SCH (08:14)
[2021-07-23] MEDS: Vitamin E 400 UNITS CAP PO SCH (08:15)
[2021-07-23] MEDS: Acetaminophen 500 MG TAB PO PRN (10:48)
[2021-07-23] MEDS: Amoxicillin/Potassium Clav 875 MG TAB PO SCH (21:03)
[2021-07-23] MEDS: Ciprofloxacin 500 MG TAB PO SCH (21:03)
[2021-07-23] MEDS: Lantus 1000 UNITS/10 ML VIAL SC SCH (21:04)
[2021-07-23] MEDS: Enoxaparin Sodium 40 MG/0.4 ML SYRINGE SC SCH (21:04)
[2021-07-24] MEDS: Ciprofloxacin 500 MG TAB PO SCH (05:34)
[2021-07-24 06:43] LABS: #Eosinphils 0.3 thou/uL (0.0-0.7); #Lymphocytes 1.5 thou/uL (1.20-3.40); #Monocytes 1.1 thou/uL (0.11-0.59); #Neutrophils 10.2 thou/uL (1.40-6.50); %Basophils 0.1 % (0.0-1.0); %Eosinophils 2.1 % (0.0-10.0); %Lymphocytes 11.2 % (21.0-51.0); %Monocytes 8.5 % (0.0-10.0); %Neutrophils 78.1 % (42.0-75.0); Hemoglobin 8.5 g/dL (14.0-18.0); Mean Corpuscular HGB CONC 32.1 g/dL (32.0-36.0); Mean Corpuscular Volume 96.6 fL (78.0-98.0); Mean Platelet Volume 6.4 fL (7.4-10.4); Platelet Count 402 thou/uL (130-400); RBC Distribution Width 16.8 % (11.5-14.5); Red Blood Cell (RBC) Count 2.73 mill/uL (4.70-6.10)
[2021-07-24 07:11] LABS: ALT (SGPT) 51 U/L (8-55); AST (SGOT) 49 U/L (5-34); Albumin 2.1 g/dL (3.4-4.8); Alkaline Phosphatase 159 U/L (40-110); Anion Gap 12 mmol/L (10-20); BUN (Urea Nitrogen) 19 mg/dL (8.4-25.7); Bilirubin, Total 0.4 mg/dL (0.2-1.2); Calc. Creatinine Clearance 67 mL/min (70-130); Calcium 7.3 mg/dL (7.8-10.44); Carbon Dioxide 22 mmol/L (23-31); Chloride 110 mmol/L (98-107); Glucose 148 mg/dL (83-110); Potassium 3.4 mmol/L (3.5-5.1); Protein, Total 5.1 g/dL (5.8-8.1); Sodium 141 mmol/L (136-145)
[2021-07-24] MEDS ORDERED: Potassium Chloride 20 MEQ TAB PO SCH (08:00)
[2021-07-24] MEDS: Folic Acid 1 MG TAB PO SCH (10:13)
[2021-07-24] MEDS: Allopurinol 100 MG TAB PO SCH (10:13)
[2021-07-24] MEDS: Aspirin 81 mg Enteric Coated Tablet PO SCH (10:13)
[2021-07-24] MEDS: Vitamin E 400 UNITS CAP PO SCH (10:13)
[2021-07-24] MEDS: Amoxicillin/Potassium Clav 875 MG TAB PO SCH (10:13)
[2021-07-24] MEDS: Acetaminophen 500 MG TAB PO PRN (12:03)
[2021-07-24] MEDS ORDERED: Piperacillin/Tazobactam 3.375 GM in Sodium Chloride 0.9% 100 ML IVPB SCH (14:15)
[2021-07-24] MEDS: Piperacillin/Tazobactam 3.375 GM in Sodium Chloride 0.9% 100 ML IVPB SCH (18:30)
[2021-07-24] MEDS: Enoxaparin Sodium 40 MG/0.4 ML SYRINGE SC SCH (20:22)
[2021-07-24] MEDS ORDERED: Lantus 1000 UNITS/10 ML VIAL SC SCH (21:00)
[2021-07-24] MEDS ORDERED: Dextrose 5%-Lactated Ringers 1,000 ML IV SCH (23:59)
[2021-07-25] MEDS: Piperacillin/Tazobactam 3.375 GM in Sodium Chloride 0.9% 100 ML IVPB SCH ×3 (01:48→18:34)
[2021-07-25 07:06] LABS: #Eosinphils 0.5 thou/uL (0.0-0.7); #Lymphocytes 1.7 thou/uL (1.20-3.40); #Monocytes 1.1 thou/uL (0.11-0.59); #Neutrophils 11.8 thou/uL (1.40-6.50); %Basophils 0.1 % (0.0-1.0); %Eosinophils 3.3 % (0.0-10.0); %Lymphocytes 11.5 % (21.0-51.0); Hemoglobin 8.7 g/dL (14.0-18.0); Mean Corpuscular HGB CONC 31.2 g/dL (32.0-36.0); Mean Corpuscular Hemoglobin 30.4 pg (27.0-31.0); Mean Corpuscular Volume 97.3 fL (78.0-98.0); Mean Platelet Volume 6.6 fL (7.4-10.4); Platelet Count 375 thou/uL (130-400); RBC Distribution Width 16.9 % (11.5-14.5); Red Blood Cell (RBC) Count 2.86 mill/uL (4.70-6.10); White Blood Cell (WBC) Count 15.1 thou/uL (4.8-10.8)
[2021-07-25 07:34] LABS: Anion Gap 13 mmol/L (10-20); BUN (Urea Nitrogen) 14 mg/dL (8.4-25.7); Bilirubin, Total 0.5 mg/dL (0.2-1.2); Calc. Creatinine Clearance 76 mL/min (70-130); Calcium 7.5 mg/dL (7.8-10.44); Carbon Dioxide 22 mmol/L (23-31); Chloride 112 mmol/L (98-107); Globulin 2.8 g/dL (2.4-3.5); Glucose 98 mg/dL (83-110); Potassium 4.1 mmol/L (3.5-5.1); Protein, Total 4.8 g/dL (5.8-8.1); Sodium 143 mmol/L (136-145)
[2021-07-25 07:35] LABS: ALT (SGPT) 39 U/L (8-55); AST (SGOT) 33 U/L (5-34); Alkaline Phosphatase 162 U/L (40-110)
[2021-07-25] MEDS ORDERED: Morphine 4 MG/ML VIAL ONE (11:04)
[2021-07-25] MEDS ORDERED: Sodium Chloride 0.9% 10 ML ONE ×2 (11:06→14:02)
[2021-07-25] MEDS: Allopurinol 100 MG TAB PO SCH (12:05)
[2021-07-25] MEDS: Aspirin 81 mg Enteric Coated Tablet PO SCH (12:05)
[2021-07-25] MEDS: Folic Acid 1 MG TAB PO SCH (12:06)
[2021-07-25] MEDS: Vitamin E 400 UNITS CAP PO SCH (12:06)
[2021-07-25] MEDS ORDERED: Dextrose 5%-Lactated Ringers 1,000 ML IV SCH (12:45)
[2021-07-25] MEDS ORDERED: Heparin 1,000 UNITS/ML VIAL ONE (12:50)
[2021-07-25 13:44] LABS: INR-International Normal Ratio 1.3; PTT 44.7 sec (22.9-36.1)
[2021-07-25] MEDS ORDERED: Sodium Bicarbonate 2.5 MEQ/5 ML VIAL ONE (14:02)
[2021-07-25] MEDS ORDERED: Fentanyl 100 MCG/2 ML VIAL ONE (14:02)
[2021-07-25] MEDS ORDERED: Lidocaine 1% PF 5 ML VIAL ONE (14:02)
[2021-07-25] MEDS ORDERED: Midazolam HCl 2 mg/2 ml Vial ONE (14:02)
[2021-07-25] MEDS: Enoxaparin Sodium 40 MG/0.4 ML SYRINGE SC SCH (20:09)
[2021-07-25] MEDS ORDERED: Lantus 1000 UNITS/10 ML VIAL SC SCH ×2 (21:00)
[2021-07-26] MEDS: Piperacillin/Tazobactam 3.375 GM in Sodium Chloride 0.9% 100 ML IVPB SCH ×3 (02:07→17:43)
[2021-07-26 07:51] LABS: #Basophils 0.1 thou/uL (0.0-0.2); #Eosinphils 0.4 thou/uL (0.0-0.7); #Lymphocytes 1.4 thou/uL (1.20-3.40); #Neutrophils 11.7 thou/uL (1.40-6.50); %Basophils 0.4 % (0.0-1.0); %Eosinophils 3.1 % (0.0-10.0); %Lymphocytes 9.4 % (21.0-51.0); %Monocytes 6.7 % (0.0-10.0); %Neutrophils 80.5 % (42.0-75.0); Hemoglobin 8.3 g/dL (14.0-18.0); Mean Corpuscular HGB CONC 31.8 g/dL (32.0-36.0); Mean Corpuscular Hemoglobin 30.8 pg (27.0-31.0); Mean Corpuscular Volume 96.9 fL (78.0-98.0); Mean Platelet Volume 6.4 fL (7.4-10.4); Platelet Count 408 thou/uL (130-400); RBC Distribution Width 16.7 % (11.5-14.5); Red Blood Cell (RBC) Count 2.68 mill/uL (4.70-6.10); White Blood Cell (WBC) Count 14.5 thou/uL (4.8-10.8)
[2021-07-26] MEDS ORDERED: Lantus 1000 UNITS/10 ML VIAL SC SCH (07:51)
[2021-07-26 08:01] LABS: ALT (SGPT) 27 U/L (8-55); AST (SGOT) 22 U/L (5-34); Albumin 2.1 g/dL (3.4-4.8); Alkaline Phosphatase 162 U/L (40-110); Anion Gap 14 mmol/L (10-20); BUN (Urea Nitrogen) 11 mg/dL (8.4-25.7); Bilirubin, Total 0.5 mg/dL (0.2-1.2); Calc. Creatinine Clearance 79 mL/min (70-130); Calcium 7.2 mg/dL (7.8-10.44); Carbon Dioxide 24 mmol/L (23-31); Chloride 110 mmol/L (98-107); Globulin 2.4 g/dL (2.4-3.5); Glucose 96 mg/dL (83-110); Potassium 3.8 mmol/L (3.5-5.1); Protein, Total 4.5 g/dL (5.8-8.1); Sodium 144 mmol/L (136-145)
[2021-07-26] MEDS: Allopurinol 100 MG TAB PO SCH (08:37)
[2021-07-26] MEDS: Folic Acid 1 MG TAB PO SCH (08:37)
[2021-07-26] MEDS: Aspirin 81 mg Enteric Coated Tablet PO SCH (08:37)
[2021-07-26] MEDS: Vitamin E 400 UNITS CAP PO SCH (08:38)
[2021-07-26] MEDS: Acetaminophen 500 MG TAB PO PRN (14:50)
[2021-07-26 17:16] LABS: SARS-CoV-2 PCR by NAA Not Detected (NotDetected)
[2021-07-26] MEDS: HumaLOG 300 UNITS/3 ML VIAL SC PRN (17:42)
[2021-07-26] MEDS: Enoxaparin Sodium 40 MG/0.4 ML SYRINGE SC SCH (20:32)
[2021-07-27] MEDS ORDERED: traMADol HCl 50 MG TAB PO SCH (00:15)
[2021-07-27] MEDS: Piperacillin/Tazobactam 3.375 GM in Sodium Chloride 0.9% 100 ML IVPB SCH ×3 (01:56→17:32)
[2021-07-27 06:55] LABS: #Eosinphils 0.3 thou/uL (0.0-0.7); #Lymphocytes 1.6 thou/uL (1.20-3.40); #Monocytes 1.2 thou/uL (0.11-0.59); #Neutrophils 11.5 thou/uL (1.40-6.50); %Basophils 0.1 % (0.0-1.0); %Eosinophils 2.3 % (0.0-10.0); %Lymphocytes 10.7 % (21.0-51.0); %Monocytes 8.3 % (0.0-10.0); %Neutrophils 78.6 % (42.0-75.0); Hemoglobin 8.2 g/dL (14.0-18.0); Mean Corpuscular HGB CONC 32.4 g/dL (32.0-36.0); Mean Corpuscular Hemoglobin 31.4 pg (27.0-31.0); Mean Corpuscular Volume 96.7 fL (78.0-98.0); Mean Platelet Volume 6.5 fL (7.4-10.4); Platelet Count 379 thou/uL (130-400); RBC Distribution Width 16.6 % (11.5-14.5); Red Blood Cell (RBC) Count 2.61 mill/uL (4.70-6.10); White Blood Cell (WBC) Count 14.6 thou/uL (4.8-10.8)
[2021-07-27 07:10] LABS: ALT (SGPT) 21 U/L (8-55); AST (SGOT) 19 U/L (5-34); Albumin 2.2 g/dL (3.4-4.8); Alkaline Phosphatase 150 U/L (40-110); Anion Gap 11 mmol/L (10-20); BUN (Urea Nitrogen) 11 mg/dL (8.4-25.7); Bilirubin, Total 0.4 mg/dL (0.2-1.2); Calc. Creatinine Clearance 71 mL/min (70-130); Calcium 7.6 mg/dL (7.8-10.44); Carbon Dioxide 25 mmol/L (23-31); Chloride 108 mmol/L (98-107); Globulin 2.9 g/dL (2.4-3.5); Glucose 113 mg/dL (83-110); Protein, Total 5.1 g/dL (5.8-8.1); Sodium 141 mmol/L (136-145)
[2021-07-27 07:17] LABS: Potassium 2.9 mmol/L (3.5-5.1)
[2021-07-27] MEDS ORDERED: Electrolyte Replacement Protocol FS PRN (07:30)
[2021-07-27] MEDS: Allopurinol 100 MG TAB PO SCH (08:30)
[2021-07-27] MEDS: Potassium Chloride 20 MEQ TAB PO SCH ×2 (08:30→11:48)
[2021-07-27] MEDS: Folic Acid 1 MG TAB PO SCH (08:30)
[2021-07-27] MEDS: Aspirin 81 mg Enteric Coated Tablet PO SCH (08:30)
[2021-07-27] MEDS: Vitamin E 400 UNITS CAP PO SCH (08:31)
[2021-07-27] MEDS: Acetaminophen 650 MG Suppository PR PRN (10:23)
[2021-07-27] MEDS: Acetaminophen 500 MG TAB PO PRN (17:37)
[2021-07-27] MEDS: Enoxaparin Sodium 40 MG/0.4 ML SYRINGE SC SCH (20:30)
[2021-07-27] MEDS: Ascorbic Acid 500 mg Chewable Tablet PO SCH (20:30)
[2021-07-27] MEDS ORDERED: Ondansetron PF 4 MG/2 ML Vial IVP PRN (20:32)
[2021-07-28] MEDS: Acetaminophen 500 MG TAB PO PRN ×2 (00:33→20:16)
[2021-07-28] MEDS: Piperacillin/Tazobactam 3.375 GM in Sodium Chloride 0.9% 100 ML IVPB SCH ×3 (01:43→18:17)
[2021-07-28 07:06] LABS: #Eosinphils 0.3 thou/uL (0.0-0.7); #Lymphocytes 1.4 thou/uL (1.20-3.40); #Monocytes 1.3 thou/uL (0.11-0.59); #Neutrophils 11.6 thou/uL (1.40-6.50); %Basophils 0.1 % (0.0-1.0); %Eosinophils 1.8 % (0.0-10.0); %Lymphocytes 9.5 % (21.0-51.0); %Monocytes 9.2 % (0.0-10.0); %Neutrophils 79.5 % (42.0-75.0); Hemoglobin 8.2 g/dL (14.0-18.0); Mean Corpuscular HGB CONC 32.4 g/dL (32.0-36.0); Mean Corpuscular Hemoglobin 31.2 pg (27.0-31.0); Mean Corpuscular Volume 96.4 fL (78.0-98.0); Mean Platelet Volume 6.3 fL (7.4-10.4); Platelet Count 366 thou/uL (130-400); RBC Distribution Width 16.9 % (11.5-14.5); Red Blood Cell (RBC) Count 2.62 mill/uL (4.70-6.10); White Blood Cell (WBC) Count 14.6 thou/uL (4.8-10.8)
[2021-07-28 07:28] LABS: ALT (SGPT) 18 U/L (8-55); AST (SGOT) 20 U/L (5-34); Albumin 2.1 g/dL (3.4-4.8); Alkaline Phosphatase 158 U/L (40-110); Anion Gap 12 mmol/L (10-20); BUN (Urea Nitrogen) 10 mg/dL (8.4-25.7); Bilirubin, Total 0.4 mg/dL (0.2-1.2); Calc. Creatinine Clearance 77 mL/min (70-130); Calcium 7.5 mg/dL (7.8-10.44); Carbon Dioxide 23 mmol/L (23-31); Chloride 109 mmol/L (98-107); Globulin 3.1 g/dL (2.4-3.5); Glucose 112 mg/dL (83-110); Potassium 3.8 mmol/L (3.5-5.1); Protein, Total 5.2 g/dL (5.8-8.1); Sodium 140 mmol/L (136-145)
[2021-07-28] MEDS: Saccharomyces boulardii 250 MG CAP PO SCH (08:12)
[2021-07-28] MEDS: Potassium Chloride 10 MEQ TAB PO SCH ×2 (08:12→18:16)
[2021-07-28] MEDS: Aspirin 81 mg Enteric Coated Tablet PO SCH (08:13)
[2021-07-28] MEDS: Vitamin E 400 UNITS CAP PO SCH (08:13)
[2021-07-28] MEDS: Ascorbic Acid 500 mg Chewable Tablet PO SCH ×2 (08:13→20:16)
[2021-07-28] MEDS: Allopurinol 100 MG TAB PO SCH (08:13)
[2021-07-28] MEDS: Folic Acid 1 MG TAB PO SCH (08:13)
[2021-07-28] MEDS: Acetaminophen 650 MG Suppository PR PRN (15:52)
[2021-07-28] MEDS: Enoxaparin Sodium 40 MG/0.4 ML SYRINGE SC SCH (20:16)
[2021-07-29] MEDS: Acetaminophen 650 MG Suppository PR PRN (00:25)
[2021-07-29] MEDS: Piperacillin/Tazobactam 3.375 GM in Sodium Chloride 0.9% 100 ML IVPB SCH ×3 (02:50→18:26)
[2021-07-29 06:29] LABS: Band 2 % (5-11); Eosinophils 1 % (0-10); Hemoglobin 7.8 g/dL (14.0-18.0); Lymphocytes 6 % (21-51); MDiff Complete? YES; Mean Corpuscular HGB CONC 32.3 g/dL (32.0-36.0); Mean Corpuscular Volume 95.8 fL (78.0-98.0); Mean Platelet Volume 6.6 fL (7.4-10.4); Monocytes 17 % (0-10); Neutrophil 74 % (42-75); Platelet Count 389 thou/uL (130-400); Platelet Morphology Comment Appears Adequate; RBC Distribution Width 16.8 % (11.5-14.5)
[2021-07-29 06:39] LABS: ALT (SGPT) 15 U/L (8-55); AST (SGOT) 14 U/L (5-34); Albumin 2.1 g/dL (3.4-4.8); Alkaline Phosphatase 160 U/L (40-110); Anion Gap 10 mmol/L (10-20); BUN (Urea Nitrogen) 9 mg/dL (8.4-25.7); Bilirubin, Total 0.4 mg/dL (0.2-1.2); Calc. Creatinine Clearance 72 mL/min (70-130); Calcium 7.6 mg/dL (7.8-10.44); Carbon Dioxide 23 mmol/L (23-31); Chloride 109 mmol/L (98-107); Glucose 133 mg/dL (83-110); Potassium 3.8 mmol/L (3.5-5.1); Protein, Total 5.1 g/dL (5.8-8.1); Sodium 138 mmol/L (136-145)
[2021-07-29] MEDS: Acetaminophen 500 MG TAB PO PRN (07:10)
[2021-07-29] MEDS: Ascorbic Acid 500 mg Chewable Tablet PO SCH ×2 (09:01→21:37)
[2021-07-29] MEDS: Allopurinol 100 MG TAB PO SCH (09:01)
[2021-07-29] MEDS: Vitamin E 400 UNITS CAP PO SCH (09:01)
[2021-07-29] MEDS: Saccharomyces boulardii 250 MG CAP PO SCH (09:01)
[2021-07-29] MEDS: Potassium Chloride 10 MEQ TAB PO SCH ×2 (09:01→16:14)
[2021-07-29] MEDS: Folic Acid 1 MG TAB PO SCH (09:01)
[2021-07-29] MEDS: Aspirin 81 mg Enteric Coated Tablet PO SCH (09:01)
[2021-07-29] MEDS: HumaLOG 300 UNITS/3 ML VIAL SC PRN (11:33)
[2021-07-29] MEDS ORDERED: Vancomycin HCl 1.25 GM in Sodium Chloride 0.9% 250 ML 250 ML IVPB SCH (16:00)
[2021-07-29] MEDS: Enoxaparin Sodium 40 MG/0.4 ML SYRINGE SC SCH (21:37)
[2021-07-30] MEDS: Piperacillin/Tazobactam 3.375 GM in Sodium Chloride 0.9% 100 ML IVPB SCH ×3 (01:27→19:01)
[2021-07-30] MEDS: Vancomycin 1 GM in Premix Bag 1 BAG IVPB SCH ×2 (04:45→17:00)
[2021-07-30 06:44] LABS: #Eosinphils 0.1 thou/uL (0.0-0.7); #Lymphocytes 1.4 thou/uL (1.20-3.40); #Monocytes 1.6 thou/uL (0.11-0.59); #Neutrophils 15.9 thou/uL (1.40-6.50); %Basophils 0.1 % (0.0-1.0); %Eosinophils 0.7 % (0.0-10.0); %Lymphocytes 7.4 % (21.0-51.0); %Monocytes 8.5 % (0.0-10.0); %Neutrophils 83.2 % (42.0-75.0); Hemoglobin 7.1 g/dL (14.0-18.0); Mean Corpuscular HGB CONC 32.5 g/dL (32.0-36.0); Mean Corpuscular Hemoglobin 31.1 pg (27.0-31.0); Mean Corpuscular Volume 95.7 fL (78.0-98.0); Mean Platelet Volume 6.4 fL (7.4-10.4); Platelet Count 384 thou/uL (130-400); RBC Distribution Width 16.4 % (11.5-14.5); Red Blood Cell (RBC) Count 2.28 mill/uL (4.70-6.10); White Blood Cell (WBC) Count 19.1 thou/uL (4.8-10.8)
[2021-07-30 07:13] LABS: ALT (SGPT) 13 U/L (8-55); AST (SGOT) 15 U/L (5-34); Albumin 1.8 g/dL (3.4-4.8); Alkaline Phosphatase 139 U/L (40-110); Anion Gap 11 mmol/L (10-20); BUN (Urea Nitrogen) 9 mg/dL (8.4-25.7); Bilirubin, Total 0.4 mg/dL (0.2-1.2); Calc. Creatinine Clearance 69 mL/min (70-130); Calcium 7.2 mg/dL (7.8-10.44); Carbon Dioxide 21 mmol/L (23-31); Chloride 111 mmol/L (98-107); Glucose 138 mg/dL (83-110); Potassium 3.7 mmol/L (3.5-5.1); Protein, Total 4.8 g/dL (5.8-8.1); Sodium 139 mmol/L (136-145)
[2021-07-30] MEDS: Ascorbic Acid 500 mg Chewable Tablet PO SCH ×2 (09:22→19:51)
[2021-07-30] MEDS: Aspirin 81 mg Enteric Coated Tablet PO SCH (09:22)
[2021-07-30] MEDS: Acetaminophen 500 MG TAB PO PRN (09:22)
[2021-07-30] MEDS: Saccharomyces boulardii 250 MG CAP PO SCH (09:22)
[2021-07-30] MEDS: Allopurinol 100 MG TAB PO SCH (09:23)
[2021-07-30] MEDS: Vitamin E 400 UNITS CAP PO SCH (09:23)
[2021-07-30] MEDS: Potassium Chloride 10 MEQ TAB PO SCH ×2 (09:23→17:00)
[2021-07-30] MEDS: Folic Acid 1 MG TAB PO SCH (09:23)
[2021-07-30] MEDS ORDERED: Ketorolac Tromethamine 30 MG/ML VIAL IVP SCH (16:45)
[2021-07-30] MEDS: Enoxaparin Sodium 40 MG/0.4 ML SYRINGE SC SCH (19:51)
[2021-07-30] MEDS: Ketorolac Tromethamine 30 MG/ML VIAL IVP SCH (23:22)
[2021-07-31] MEDS: Piperacillin/Tazobactam 3.375 GM in Sodium Chloride 0.9% 100 ML IVPB SCH ×3 (02:24→16:40)
[2021-07-31 03:49] LABS: #Eosinphils 0.4 thou/uL (0.0-0.7); #Lymphocytes 1.5 thou/uL (1.20-3.40); #Neutrophils 12.3 thou/uL (1.40-6.50); %Basophils 0.1 % (0.0-1.0); %Eosinophils 2.9 % (0.0-10.0); %Lymphocytes 9.5 % (21.0-51.0); %Monocytes 6.6 % (0.0-10.0); %Neutrophils 80.9 % (42.0-75.0); Hemoglobin 7.6 g/dL (14.0-18.0); Mean Corpuscular HGB CONC 31.9 g/dL (32.0-36.0); Mean Corpuscular Hemoglobin 30.8 pg (27.0-31.0); Mean Corpuscular Volume 96.6 fL (78.0-98.0); Mean Platelet Volume 6.4 fL (7.4-10.4); Platelet Count 413 thou/uL (130-400); RBC Distribution Width 16.4 % (11.5-14.5); Red Blood Cell (RBC) Count 2.47 mill/uL (4.70-6.10); White Blood Cell (WBC) Count 15.2 thou/uL (4.8-10.8)
[2021-07-31] MEDS: Vancomycin 1 GM in Premix Bag 1 BAG IVPB SCH (04:08)
[2021-07-31 04:14] LABS: Vancomycin, Trough 22.9 ug/mL
[2021-07-31] MEDS: Ketorolac Tromethamine 30 MG/ML VIAL IVP SCH ×3 (05:16→16:39)
[2021-07-31] MEDS ORDERED: Vancomycin HCl 750 MG in Sodium Chloride 0.9% 250 ML 250 ML IVPB SCH (07:45)
[2021-07-31] MEDS: Folic Acid 1 MG TAB PO SCH (09:31)
[2021-07-31] MEDS: Aspirin 81 mg Enteric Coated Tablet PO SCH (09:32)
[2021-07-31] MEDS: Vitamin E 400 UNITS CAP PO SCH (09:32)
[2021-07-31] MEDS: Saccharomyces boulardii 250 MG CAP PO SCH (09:32)
[2021-07-31] MEDS: Ascorbic Acid 500 mg Chewable Tablet PO SCH ×2 (09:32→20:19)
[2021-07-31] MEDS: Potassium Chloride 10 MEQ TAB PO SCH ×2 (09:32→16:40)
[2021-07-31] MEDS: Allopurinol 100 MG TAB PO SCH (09:32)
[2021-07-31] MEDS: Enoxaparin Sodium 40 MG/0.4 ML SYRINGE SC SCH (20:19)
[2021-08-01] MEDS: Ketorolac Tromethamine 30 MG/ML VIAL IVP SCH ×4 (00:22→17:21)
[2021-08-01] MEDS: Piperacillin/Tazobactam 3.375 GM in Sodium Chloride 0.9% 100 ML IVPB SCH ×3 (01:35→17:22)
[2021-08-01] MEDS: VANCOMYCIN 1.75 GM/350 ML BAG 1.75 GM in Premix Bag 1 BAG IVPB SCH (04:20)
[2021-08-01 07:07] LABS: #Eosinphils 0.4 thou/uL (0.0-0.7); #Lymphocytes 1.1 thou/uL (1.20-3.40); #Monocytes 0.7 thou/uL (0.11-0.59); #Neutrophils 10.9 thou/uL (1.40-6.50); %Basophils 0.2 % (0.0-1.0); %Eosinophils 3.3 % (0.0-10.0); %Lymphocytes 8.6 % (21.0-51.0); %Monocytes 5.3 % (0.0-10.0); %Neutrophils 82.6 % (42.0-75.0); Mean Corpuscular HGB CONC 30.8 g/dL (32.0-36.0); Mean Corpuscular Hemoglobin 30.2 pg (27.0-31.0); Mean Corpuscular Volume 98.2 fL (78.0-98.0); Mean Platelet Volume 6.6 fL (7.4-10.4); Platelet Count 443 thou/uL (130-400); RBC Distribution Width 16.3 % (11.5-14.5); Red Blood Cell (RBC) Count 2.64 mill/uL (4.70-6.10); White Blood Cell (WBC) Count 13.2 thou/uL (4.8-10.8)
[2021-08-01 07:30] LABS: Anion Gap 15 mmol/L (10-20); BUN (Urea Nitrogen) 14 mg/dL (8.4-25.7); Calc. Creatinine Clearance 69 mL/min (70-130); Calcium 7.4 mg/dL (7.8-10.44); Carbon Dioxide 20 mmol/L (23-31); Chloride 109 mmol/L (98-107); Glucose 128 mg/dL (83-110); Potassium 3.6 mmol/L (3.5-5.1); Sodium 140 mmol/L (136-145)
[2021-08-01] MEDS: Aspirin 81 mg Enteric Coated Tablet PO SCH (08:58)
[2021-08-01] MEDS: Folic Acid 1 MG TAB PO SCH (08:58)
[2021-08-01] MEDS: Vitamin E 400 UNITS CAP PO SCH (08:58)
[2021-08-01] MEDS: Potassium Chloride 10 MEQ TAB PO SCH ×2 (08:58→17:22)
[2021-08-01] MEDS: Allopurinol 100 MG TAB PO SCH (08:59)
[2021-08-01] MEDS: Saccharomyces boulardii 250 MG CAP PO SCH (08:59)
[2021-08-01] MEDS: Ascorbic Acid 500 mg Chewable Tablet PO SCH ×2 (08:59→21:51)
[2021-08-01] MEDS: Enoxaparin Sodium 40 MG/0.4 ML SYRINGE SC SCH (21:51)
[2021-08-01] MEDS: Acetaminophen 500 MG TAB PO PRN (21:51)
[2021-08-02] MEDS: Piperacillin/Tazobactam 3.375 GM in Sodium Chloride 0.9% 100 ML IVPB SCH ×3 (00:31→17:43)
[2021-08-02] MEDS: Ketorolac Tromethamine 30 MG/ML VIAL IVP SCH ×4 (00:31→17:42)
[2021-08-02 03:37] LABS: #Eosinphils 0.5 thou/uL (0.0-0.7); #Lymphocytes 1.7 thou/uL (1.20-3.40); #Neutrophils 9.8 thou/uL (1.40-6.50); %Basophils 0.1 % (0.0-1.0); %Eosinophils 4.1 % (0.0-10.0); %Lymphocytes 12.7 % (21.0-51.0); %Neutrophils 75.1 % (42.0-75.0); Hemoglobin 7.7 g/dL (14.0-18.0); Mean Corpuscular HGB CONC 32.5 g/dL (32.0-36.0); Mean Corpuscular Hemoglobin 31.1 pg (27.0-31.0); Mean Corpuscular Volume 95.6 fL (78.0-98.0); Mean Platelet Volume 6.1 fL (7.4-10.4); Platelet Count 507 thou/uL (130-400); RBC Distribution Width 16.5 % (11.5-14.5); Red Blood Cell (RBC) Count 2.47 mill/uL (4.70-6.10)
[2021-08-02 03:45] LABS: Vancomycin, Trough 21.1 ug/mL
[2021-08-02] MEDS: VANCOMYCIN 1.75 GM/350 ML BAG 1.75 GM in Premix Bag 1 BAG IVPB SCH (05:20)
[2021-08-02] MEDS: Aspirin 81 mg Enteric Coated Tablet PO SCH (08:34)
[2021-08-02] MEDS: Saccharomyces boulardii 250 MG CAP PO SCH (08:34)
[2021-08-02] MEDS: Folic Acid 1 MG TAB PO SCH (08:34)
[2021-08-02] MEDS: Potassium Chloride 10 MEQ TAB PO SCH ×2 (08:34→17:42)
[2021-08-02] MEDS: Vitamin E 400 UNITS CAP PO SCH (08:34)
[2021-08-02] MEDS: Ascorbic Acid 500 mg Chewable Tablet PO SCH ×2 (08:34→21:54)
[2021-08-02] MEDS: Allopurinol 100 MG TAB PO SCH (08:34)
[2021-08-02] MEDS: Enoxaparin Sodium 40 MG/0.4 ML SYRINGE SC SCH (21:54)
[2021-08-02] MEDS: Acetaminophen 500 MG TAB PO PRN (21:54)
[2021-08-03] MEDS: Piperacillin/Tazobactam 3.375 GM in Sodium Chloride 0.9% 100 ML IVPB SCH ×3 (01:01→17:31)
[2021-08-03] MEDS: Ketorolac Tromethamine 30 MG/ML VIAL IVP SCH ×4 (01:01→17:31)
[2021-08-03] MEDS: VANCOMYCIN 1.75 GM/350 ML BAG 1.75 GM in Premix Bag 1 BAG IVPB SCH (05:04)
[2021-08-03 06:07] LABS: #Eosinphils 0.5 thou/uL (0.0-0.7); #Lymphocytes 1.3 thou/uL (1.20-3.40); #Neutrophils 11.1 thou/uL (1.40-6.50); %Basophils 0.3 % (0.0-1.0); %Eosinophils 3.6 % (0.0-10.0); %Lymphocytes 9.6 % (21.0-51.0); %Monocytes 7.3 % (0.0-10.0); %Neutrophils 79.2 % (42.0-75.0); Hemoglobin 7.6 g/dL (14.0-18.0); Mean Corpuscular HGB CONC 31.7 g/dL (32.0-36.0); Mean Corpuscular Hemoglobin 30.3 pg (27.0-31.0); Mean Corpuscular Volume 95.7 fL (78.0-98.0); Platelet Count 564 thou/uL (130-400); RBC Distribution Width 16.7 % (11.5-14.5)
[2021-08-03] MEDS: Potassium Chloride 10 MEQ TAB PO SCH ×2 (09:00→17:30)
[2021-08-03] MEDS: Aspirin 81 mg Enteric Coated Tablet PO SCH (09:01)
[2021-08-03] MEDS: Saccharomyces boulardii 250 MG CAP PO SCH (09:01)
[2021-08-03] MEDS: Ascorbic Acid 500 mg Chewable Tablet PO SCH ×2 (09:01→21:12)
[2021-08-03] MEDS: Folic Acid 1 MG TAB PO SCH (09:01)
[2021-08-03] MEDS: Allopurinol 100 MG TAB PO SCH (09:01)
[2021-08-03] MEDS: Vitamin E 400 UNITS CAP PO SCH (09:01)
[2021-08-03 11:53] LABS: SARS-CoV-2 PCR by NAA Not Detected (NotDetected)
[2021-08-03] MEDS: Acetaminophen 500 MG TAB PO PRN (21:12)
[2021-08-03] MEDS: Enoxaparin Sodium 40 MG/0.4 ML SYRINGE SC SCH (21:12)
[2021-08-04] MEDS: Ketorolac Tromethamine 30 MG/ML VIAL IVP SCH ×4 (01:10→18:32)
[2021-08-04] MEDS: Piperacillin/Tazobactam 3.375 GM in Sodium Chloride 0.9% 100 ML IVPB SCH ×3 (01:11→18:36)
[2021-08-04 03:57] LABS: Vancomycin, Trough 23.8 ug/mL
[2021-08-04] MEDS: VANCOMYCIN 1.75 GM/350 ML BAG 1.75 GM in Premix Bag 1 BAG IVPB SCH (04:25)
[2021-08-04] MEDS: Potassium Chloride 10 MEQ TAB PO SCH ×2 (09:50→17:15)
[2021-08-04] MEDS: Ascorbic Acid 500 mg Chewable Tablet PO SCH ×2 (09:51→19:53)
[2021-08-04] MEDS: Folic Acid 1 MG TAB PO SCH (09:51)
[2021-08-04] MEDS: Allopurinol 100 MG TAB PO SCH (09:51)
[2021-08-04] MEDS: Saccharomyces boulardii 250 MG CAP PO SCH (09:51)
[2021-08-04] MEDS: VANCOMYCIN 1.25 GM/250 ML BAG 1.25 GM in Premix Bag 1 BAG IVPB SCH (09:51)
[2021-08-04] MEDS: Vitamin E 400 UNITS CAP PO SCH (09:51)
[2021-08-04] MEDS: Aspirin 81 mg Enteric Coated Tablet PO SCH (09:51)
[2021-08-04] MEDS ORDERED: Loperamide HCl 2 MG CAP PO PRN (11:14)
[2021-08-04 14:08] LABS: Calc. Creatinine Clearance 73 mL/min (70-130)
[2021-08-04] MEDS: Enoxaparin Sodium 40 MG/0.4 ML SYRINGE SC SCH (19:53)
[2021-08-05] MEDS: Ketorolac Tromethamine 30 MG/ML VIAL IVP SCH
[2021-08-05] MEDS: Piperacillin/Tazobactam 3.375 GM in Sodium Chloride 0.9% 100 ML IVPB SCH ×3 (01:57→17:18)
[2021-08-05 07:55] LABS: #Basophils 0.1 thou/uL (0.0-0.2); #Eosinphils 0.5 thou/uL (0.0-0.7); #Lymphocytes 1.3 thou/uL (1.20-3.40); #Monocytes 1.1 thou/uL (0.11-0.59); #Neutrophils 10.5 thou/uL (1.40-6.50); %Basophils 0.4 % (0.0-1.0); %Eosinophils 3.6 % (0.0-10.0); %Lymphocytes 9.9 % (21.0-51.0); %Monocytes 8.2 % (0.0-10.0); Anion Gap 17 mmol/L (10-20); BUN (Urea Nitrogen) 11 mg/dL (8.4-25.7); Calc. Creatinine Clearance 70 mL/min (70-130); Calcium 7.9 mg/dL (7.8-10.44); Carbon Dioxide 17 mmol/L (23-31); Chloride 111 mmol/L (98-107); Glucose 128 mg/dL (83-110); Hemoglobin 7.9 g/dL (14.0-18.0); Mean Corpuscular HGB CONC 31.4 g/dL (32.0-36.0); Mean Corpuscular Hemoglobin 30.8 pg (27.0-31.0); Mean Platelet Volume 6.2 fL (7.4-10.4); Platelet Count 630 thou/uL (130-400); Potassium 4.2 mmol/L (3.5-5.1); RBC Distribution Width 16.9 % (11.5-14.5); Red Blood Cell (RBC) Count 2.57 mill/uL (4.70-6.10); Sodium 141 mmol/L (136-145); White Blood Cell (WBC) Count 13.5 thou/uL (4.8-10.8)
[2021-08-05] MEDS: Vitamin E 400 UNITS CAP PO SCH (08:08)
[2021-08-05] MEDS: Ascorbic Acid 500 mg Chewable Tablet PO SCH ×2 (08:08→20:06)
[2021-08-05] MEDS: Saccharomyces boulardii 250 MG CAP PO SCH (08:08)
[2021-08-05] MEDS: Potassium Chloride 10 MEQ TAB PO SCH ×2 (08:08→17:17)
[2021-08-05] MEDS: Allopurinol 100 MG TAB PO SCH (08:09)
[2021-08-05] MEDS: Folic Acid 1 MG TAB PO SCH (08:09)
[2021-08-05] MEDS: VANCOMYCIN 1.25 GM/250 ML BAG 1.25 GM in Premix Bag 1 BAG IVPB SCH (08:09)
[2021-08-05] MEDS: Aspirin 81 mg Enteric Coated Tablet PO SCH (08:09)
[2021-08-05] MEDS: Enoxaparin Sodium 40 MG/0.4 ML SYRINGE SC SCH (20:06)
[2021-08-06] MEDS: Piperacillin/Tazobactam 3.375 GM in Sodium Chloride 0.9% 100 ML IVPB SCH ×3 (02:01→16:58)
[2021-08-06 07:28] LABS: Vancomycin, Trough 25.6 ug/mL
[2021-08-06] MEDS: Vitamin E 400 UNITS CAP PO SCH (08:05)
[2021-08-06] MEDS: Saccharomyces boulardii 250 MG CAP PO SCH (08:05)
[2021-08-06] MEDS: Aspirin 81 mg Enteric Coated Tablet PO SCH (08:05)
[2021-08-06] MEDS: Ascorbic Acid 500 mg Chewable Tablet PO SCH ×2 (08:05→19:51)
[2021-08-06] MEDS: Folic Acid 1 MG TAB PO SCH (08:05)
[2021-08-06] MEDS: VANCOMYCIN 1.25 GM/250 ML BAG 1.25 GM in Premix Bag 1 BAG IVPB SCH ×2 (08:05→08:14)
[2021-08-06] MEDS: Allopurinol 100 MG TAB PO SCH (08:05)
[2021-08-06] MEDS: Potassium Chloride 10 MEQ TAB PO SCH ×2 (08:05→16:58)
[2021-08-06] MEDS: cefTRIAXone\\ROCEPHIN 2 GM in Sodium Chloride 0.9% 100 ML IVPB SCH (17:44)
[2021-08-06] MEDS: Enoxaparin Sodium 40 MG/0.4 ML SYRINGE SC SCH (19:51)
[2021-08-07] MEDS: Aspirin 81 mg Enteric Coated Tablet PO SCH (09:04)
[2021-08-07] MEDS: Folic Acid 1 MG TAB PO SCH (09:04)
[2021-08-07] MEDS: Vitamin E 400 UNITS CAP PO SCH (09:04)
[2021-08-07] MEDS: Ascorbic Acid 500 mg Chewable Tablet PO SCH ×2 (09:04→19:50)
[2021-08-07] MEDS: Allopurinol 100 MG TAB PO SCH (09:04)
[2021-08-07] MEDS: Potassium Chloride 10 MEQ TAB PO SCH ×2 (09:04→17:05)
[2021-08-07] MEDS: Carvedilol 6.25 MG TAB PO SCH ×2 (09:04→17:05)
[2021-08-07] MEDS: Vancomycin HCl 750 MG in Sodium Chloride 0.9% 250 ML 250 ML IVPB SCH (09:04)
[2021-08-07] MEDS: Saccharomyces boulardii 250 MG CAP PO SCH (09:04)
[2021-08-07] MEDS: cefTRIAXone\\ROCEPHIN 2 GM in Sodium Chloride 0.9% 100 ML IVPB SCH (17:04)
[2021-08-07] MEDS: Enoxaparin Sodium 40 MG/0.4 ML SYRINGE SC SCH (19:51)
[2021-08-07] MEDS: Acetaminophen 500 MG TAB PO PRN (19:57)
[2021-08-08 07:18] LABS: Calc. Creatinine Clearance 82 mL/min (70-130)
[2021-08-08] MEDS: Vancomycin HCl 750 MG in Sodium Chloride 0.9% 250 ML 250 ML IVPB SCH (08:19)
[2021-08-08] MEDS: Allopurinol 100 MG TAB PO SCH (08:20)
[2021-08-08] MEDS: Ascorbic Acid 500 mg Chewable Tablet PO SCH (08:20)
[2021-08-08] MEDS: Potassium Chloride 10 MEQ TAB PO SCH (08:20)
[2021-08-08] MEDS: Vitamin E 400 UNITS CAP PO SCH (08:20)
[2021-08-08] MEDS: Saccharomyces boulardii 250 MG CAP PO SCH (08:21)
[2021-08-08] MEDS: Carvedilol 6.25 MG TAB PO SCH (08:21)
[2021-08-08] MEDS: Folic Acid 1 MG TAB PO SCH (08:21)
[2021-08-08] MEDS: Aspirin 81 mg Enteric Coated Tablet PO SCH (08:21)
[2021-08-08 09:03] VITALS: TEMP 97.7
[2021-08-08 14:57] VITALS: BP 151/75
== END 2021-08-08 15:48 | DRG 871 ==
LOC: ERS 10:49 → ERHOLD 12:34 → 2NO 19:20 → OBSVTOIN 07-19 12:05 → T4-A 07-20 11:52
PROVIDERS: ADMIT Family Medicine; ATTEND Internal Medicine
PROC: 0F9430Z Drainage of Gallbladder with Drainage Device, Percutaneous Approach (ICD-10-PCS; principal; 2021-07-31)
PROC: 02HV33Z Insertion of Infusion Device into Superior Vena Cava, Percutaneous Approach (ICD-10-PCS; 2021-08-07)
PROC: B5181ZA Fluoroscopy of Superior Vena Cava using Low Osmolar Contrast, Guidance (ICD-10-PCS; 2021-08-07)
PROC: B548ZZA Ultrasonography of Superior Vena Cava, Guidance (ICD-10-PCS; 2021-08-07)
DX: A41.9 Sepsis, unspecified organism (principal); L89.894 Pressure ulcer of other site, stage 4; L89.514 Pressure ulcer of right ankle, stage 4; L89.44 Pressure ulcer of contiguous site of back, buttock and hip, stage 4; G93.41 Metabolic encephalopathy; E43 Unspecified severe protein-calorie malnutrition; L89.154 Pressure ulcer of sacral region, stage 4; L89.613 Pressure ulcer of right heel, stage 3; L89.893 Pressure ulcer of other site, stage 3; I50.22 Chronic systolic (congestive) heart failure; I13.0 Hypertensive heart and chronic kidney disease with heart failure and stage 1 through stage 4 chronic kidney disease, or unspecified chronic kidney disease; M86.8X7 Other osteomyelitis, ankle and foot; M86.8X6 Other osteomyelitis, lower leg; M46.28 Osteomyelitis of vertebra, sacral and sacrococcygeal region; A09 Infectious gastroenteritis and colitis, unspecified; K80.12 Calculus of gallbladder with acute and chronic cholecystitis without obstruction; Z66 Do not resuscitate; Z20.822 Contact with and (suspected) exposure to COVID-19; R65.20 Severe sepsis without septic shock; N18.2 Chronic kidney disease, stage 2 (mild); E11.22 Type 2 diabetes mellitus with diabetic chronic kidney disease; D63.1 Anemia in chronic kidney disease; M10.9 Gout, unspecified; F03.90 Unspecified dementia, unspecified severity, without behavioral disturbance, psychotic disturbance, mood disturbance, and anxiety; I44.0 Atrioventricular block, first degree; Z96.641 Presence of right artificial hip joint; R74.01 Elevation of levels of liver transaminase levels; E11.69 Type 2 diabetes mellitus with other specified complication; E83.42 Hypomagnesemia; E87.6 Hypokalemia; R13.12 Dysphagia, oropharyngeal phase; I48.0 Paroxysmal atrial fibrillation; I25.5 Ischemic cardiomyopathy; N40.1 Benign prostatic hyperplasia with lower urinary tract symptoms; R33.8 Other retention of urine; Z91.041 Radiographic dye allergy status; Z79.84 Long term (current) use of oral hypoglycemic drugs; Z79.82 Long term (current) use of aspirin; Z79.899 Other long term (current) drug therapy; Z90.49 Acquired absence of other specified parts of digestive tract; Z90.79 Acquired absence of other genital organ(s); Z90.89 Acquired absence of other organs; Z87.891 Personal history of nicotine dependence; Z68.23 Body mass index [BMI] 23.0-23.9, adult; L89.622 Pressure ulcer of left heel, stage 2; L89.896 Pressure-induced deep tissue damage of other site; I87.2 Venous insufficiency (chronic) (peripheral); T81.30XD Disruption of wound, unspecified, subsequent encounter; E11.621 Type 2 diabetes mellitus with foot ulcer; L97.509 Non-pressure chronic ulcer of other part of unspecified foot with unspecified severity; M62.50 Muscle wasting and atrophy, not elsewhere classified, unspecified site; R26.81 Unsteadiness on feet; R26.89 Other abnormalities of gait and mobility; W51.XXXD Accidental striking against or bumped into by another person, subsequent encounter; Z74.01 Bed confinement status
CPT/HCPCS: 36415; 36416; 36569; 49020; 71045; 72195; 74150; 74170; 76705; 77002; 78227; 80048; 80053; 80061; 80202; 81001; 82565; 83735; 84145; 84484; 85025; 85027; 85610; 85730; 87040; 87070; 87081; 87086; 87205; 87449; 87899; 93005; 93306; 96365; 96366; 96375; 99213; A9537; C1729; C1751; G0378; G0463; J0696; J1644; J1650; J1815; J1885; J2250; J2270; J2405; J2543; J3010; J3370; J3475; J3480; J3490; J7030; J7042; J7050; J7120; J7512; Q9967; U0003; U0005

== ENCOUNTER 2021-08-11 09:51 | Inpatient (IN) | payer MEDICARE, BC ==
[2021-08-11] MEDS ORDERED: Vancomycin HCl 750 MG in Sodium Chloride 0.9% 250 ML 250 ML IVPB SCH ×2 (11:45→17:24)
[2021-08-11 12:41] LABS: #Basophils 0.1 thou/uL (0.0-0.2); #Eosinphils 0.1 thou/uL (0.0-0.7); #Lymphocytes 1.5 thou/uL (1.20-3.40); #Monocytes 1.6 thou/uL (0.11-0.59); #Neutrophils 13.3 thou/uL (1.40-6.50); %Basophils 0.3 % (0.0-1.0); %Eosinophils 0.8 % (0.0-10.0); %Lymphocytes 8.9 % (21.0-51.0); %Monocytes 9.7 % (0.0-10.0); %Neutrophils 80.3 % (42.0-75.0); Hemoglobin 6.5 g/dL (14.0-18.0); Mean Corpuscular HGB CONC 31.8 g/dL (32.0-36.0); Mean Corpuscular Hemoglobin 31.2 pg (27.0-31.0); Mean Corpuscular Volume 98.1 fL (78.0-98.0); Platelet Count 599 thou/uL (130-400); RBC Distribution Width 16.3 % (11.5-14.5); Red Blood Cell (RBC) Count 2.07 mill/uL (4.70-6.10); White Blood Cell (WBC) Count 16.6 thou/uL (4.8-10.8)
[2021-08-11 13:01] LABS: ALT (SGPT) Less than 7 U/L (8-55); AST (SGOT) 13 U/L (5-34); Albumin 2.1 g/dL (3.4-4.8); Alkaline Phosphatase 114 U/L (40-110); Anion Gap 16 mmol/L (10-20); BUN (Urea Nitrogen) 18 mg/dL (8.4-25.7); Bilirubin, Total 0.2 mg/dL (0.2-1.2); Calc. Creatinine Clearance 0 mL/min (70-130); Calcium 8.1 mg/dL (7.8-10.44); Carbon Dioxide 17 mmol/L (23-31); Chloride 112 mmol/L (98-107); Globulin 3.2 g/dL (2.4-3.5); Glucose 184 mg/dL (83-110); Potassium 3.4 mmol/L (3.5-5.1); Protein, Total 5.3 g/dL (5.8-8.1); Sodium 142 mmol/L (136-145)
[2021-08-11] MEDS ORDERED: Furosemide 100 MG/10 ML VIAL ONE (13:50)
[2021-08-11] MEDS ORDERED: Heparin 1,000 UNITS/ML VIAL ONE (14:03)
[2021-08-11] MEDS ORDERED: Potassium Chloride 20 MEQ TAB ONE (14:36)
[2021-08-11 15:29] LABS: SARS-CoV-2 NAA Rapid Test Not Detected (NotDetected)
[2021-08-11] MEDS ORDERED: Ondansetron PF 4 MG/2 ML Vial IVP PRN (17:24)
[2021-08-11] MEDS ORDERED: Acetaminophen 325 MG TAB PO PRN (17:24)
[2021-08-11] MEDS ORDERED: cefTRIAXone\\ROCEPHIN 2 GM in Sodium Chloride 0.9% 100 ML IVPB SCH (18:00)
[2021-08-11] MEDS ORDERED: VANCOMYCIN 1.25 GM/250 ML BAG 1.25 GM in Premix Bag 1 BAG IVPB SCH (18:00)
[2021-08-12 05:45] LABS: #Eosinphils 0.3 thou/uL (0.0-0.7); #Lymphocytes 1.6 thou/uL (1.20-3.40); #Monocytes 1.2 thou/uL (0.11-0.59); #Neutrophils 10.4 thou/uL (1.40-6.50); %Basophils 0.1 % (0.0-1.0); %Eosinophils 2.4 % (0.0-10.0); %Lymphocytes 11.5 % (21.0-51.0); %Monocytes 8.7 % (0.0-10.0); %Neutrophils 77.3 % (42.0-75.0); Hemoglobin 8.4 g/dL (14.0-18.0); Mean Corpuscular HGB CONC 33.5 g/dL (32.0-36.0); Mean Corpuscular Hemoglobin 31.5 pg (27.0-31.0); Mean Corpuscular Volume 94.2 fL (78.0-98.0); Platelet Count 562 thou/uL (130-400); RBC Distribution Width 15.6 % (11.5-14.5); Red Blood Cell (RBC) Count 2.66 mill/uL (4.70-6.10); White Blood Cell (WBC) Count 13.5 thou/uL (4.8-10.8)
[2021-08-12 06:04] LABS: Anion Gap 16 mmol/L (10-20); BUN (Urea Nitrogen) 19 mg/dL (8.4-25.7); Calc. Creatinine Clearance 73 mL/min (70-130); Calcium 8.1 mg/dL (7.8-10.44); Carbon Dioxide 18 mmol/L (23-31); Chloride 110 mmol/L (98-107); Glucose 112 mg/dL (83-110); Potassium 3.4 mmol/L (3.5-5.1); Sodium 141 mmol/L (136-145)
[2021-08-12] MEDS ORDERED: Potassium Chloride 40 MEQ in Sodium Chloride 0.9% 250 ML 250 ML IVPB SCH (08:30)
[2021-08-12] MEDS: Potassium Chloride 20 MEQ in Premix Bag 1 BAG IVPB SCH ×2 (09:56→13:09)
[2021-08-12] MEDS ORDERED: Furosemide 20 MG TAB PO SCH (14:30)
[2021-08-12 17:27] LABS: Hemoglobin 8.7 g/dL (14.0-18.0)
[2021-08-12] MEDS: cefTRIAXone\\ROCEPHIN 2 GM in Sodium Chloride 0.9% 100 ML IVPB SCH (17:34)
[2021-08-12] MEDS: Carvedilol 6.25 MG TAB PO SCH (17:35)
[2021-08-12] MEDS ORDERED: VANCOMYCIN 1.25 GM/250 ML BAG 1.25 GM in Premix Bag 1 BAG IVPB SCH (18:00)
[2021-08-12] MEDS ORDERED: NUTRITIONAL SUPPLEMENT PO SCH (21:00)
[2021-08-12] MEDS: Ascorbic Acid 500 mg Chewable Tablet PO SCH (21:43)
[2021-08-13 05:28] LABS: #Eosinphils 0.3 thou/uL (0.0-0.7); #Lymphocytes 1.4 thou/uL (1.20-3.40); #Monocytes 1.3 thou/uL (0.11-0.59); #Neutrophils 10.7 thou/uL (1.40-6.50); %Basophils 0.2 % (0.0-1.0); %Eosinophils 2.4 % (0.0-10.0); %Monocytes 9.5 % (0.0-10.0); %Neutrophils 77.9 % (42.0-75.0); Hemoglobin 7.8 g/dL (14.0-18.0); Mean Corpuscular HGB CONC 32.7 g/dL (32.0-36.0); Mean Corpuscular Hemoglobin 31.1 pg (27.0-31.0); Mean Corpuscular Volume 95.2 fL (78.0-98.0); Mean Platelet Volume 5.9 fL (7.4-10.4); Platelet Count 527 thou/uL (130-400); RBC Distribution Width 15.6 % (11.5-14.5); Red Blood Cell (RBC) Count 2.51 mill/uL (4.70-6.10); White Blood Cell (WBC) Count 13.7 thou/uL (4.8-10.8)
[2021-08-13 05:55] LABS: Anion Gap 18 mmol/L (10-20); BUN (Urea Nitrogen) 16 mg/dL (8.4-25.7); Calc. Creatinine Clearance 75 mL/min (70-130); Calcium 7.9 mg/dL (7.8-10.44); Carbon Dioxide 17 mmol/L (23-31); Chloride 109 mmol/L (98-107); Glucose 132 mg/dL (83-110); Potassium 3.2 mmol/L (3.5-5.1); Sodium 141 mmol/L (136-145)
[2021-08-13] MEDS: Carvedilol 6.25 MG TAB PO SCH ×2 (09:14→18:06)
[2021-08-13] MEDS: Aspirin 81 mg Enteric Coated Tablet PO SCH (09:14)
[2021-08-13] MEDS: Allopurinol 100 MG TAB PO SCH (09:15)
[2021-08-13] MEDS: Ascorbic Acid 500 mg Chewable Tablet PO SCH ×2 (09:15→21:18)
[2021-08-13] MEDS: Saccharomyces boulardii 250 MG CAP PO SCH (09:15)
[2021-08-13] MEDS: Folic Acid 1 MG TAB PO SCH (09:15)
[2021-08-13 10:53] LABS: Hemoglobin A1c 5.1 % (4.0-6.0)
[2021-08-13 18:05] LABS: Vancomycin, Trough 29.8 ug/mL
[2021-08-13] MEDS: cefTRIAXone\\ROCEPHIN 2 GM in Sodium Chloride 0.9% 100 ML IVPB SCH (18:19)
[2021-08-14 05:50] LABS: #Basophils 0.1 thou/uL (0.0-0.2); #Eosinphils 0.5 thou/uL (0.0-0.7); #Lymphocytes 1.4 thou/uL (1.20-3.40); #Neutrophils 8.6 thou/uL (1.40-6.50); %Basophils 0.5 % (0.0-1.0); %Eosinophils 4.3 % (0.0-10.0); %Lymphocytes 11.9 % (21.0-51.0); %Monocytes 8.6 % (0.0-10.0); %Neutrophils 74.8 % (42.0-75.0); Hemoglobin 7.7 g/dL (14.0-18.0); Mean Corpuscular HGB CONC 33.5 g/dL (32.0-36.0); Mean Corpuscular Hemoglobin 31.9 pg (27.0-31.0); Platelet Count 489 thou/uL (130-400); RBC Distribution Width 15.7 % (11.5-14.5); White Blood Cell (WBC) Count 11.5 thou/uL (4.8-10.8)
[2021-08-14 06:10] LABS: Anion Gap 14 mmol/L (10-20); BUN (Urea Nitrogen) 14 mg/dL (8.4-25.7); Calc. Creatinine Clearance 77 mL/min (70-130); Calcium 7.5 mg/dL (7.8-10.44); Carbon Dioxide 20 mmol/L (23-31); Chloride 109 mmol/L (98-107); Glucose 133 mg/dL (83-110); Sodium 140 mmol/L (136-145)
[2021-08-14 06:14] LABS: Potassium 2.8 mmol/L (3.5-5.1)
[2021-08-14] MEDS ORDERED: Electrolyte Replacement Protocol 1 EACH FS SCH (06:30)
[2021-08-14 06:57] LABS: Magnesium 1.1 mg/dL (1.6-2.6)
[2021-08-14] MEDS: Magnesium 2 GM/50 ML 2 GM in Premix Bag 1 BAG IVPB SCH ×2 (08:23→10:32)
[2021-08-14] MEDS: Carvedilol 6.25 MG TAB PO SCH ×2 (08:30→16:53)
[2021-08-14] MEDS: Aspirin 81 mg Enteric Coated Tablet PO SCH (08:41)
[2021-08-14] MEDS: Allopurinol 100 MG TAB PO SCH (08:41)
[2021-08-14] MEDS: Folic Acid 1 MG TAB PO SCH (08:41)
[2021-08-14] MEDS: Ascorbic Acid 500 mg Chewable Tablet PO SCH ×2 (08:41→20:41)
[2021-08-14] MEDS: Potassium Chloride 20 MEQ TAB PO SCH ×2 (08:41→13:12)
[2021-08-14] MEDS: Saccharomyces boulardii 250 MG CAP PO SCH (08:41)
[2021-08-14 13:35] VITALS: BMI 24.1
[2021-08-14] MEDS: cefTRIAXone\\ROCEPHIN 2 GM in Sodium Chloride 0.9% 100 ML IVPB SCH (16:55)
[2021-08-14 18:07] LABS: Vancomycin, Random 20.2 ug/mL (See Comment)
[2021-08-15 07:47] LABS: Magnesium 1.8 mg/dL (1.6-2.6)
[2021-08-15] MEDS: Saccharomyces boulardii 250 MG CAP PO SCH (09:01)
[2021-08-15] MEDS: Carvedilol 6.25 MG TAB PO SCH (09:01)
[2021-08-15] MEDS: Folic Acid 1 MG TAB PO SCH (09:01)
[2021-08-15] MEDS: Aspirin 81 mg Enteric Coated Tablet PO SCH (09:01)
[2021-08-15] MEDS: Allopurinol 100 MG TAB PO SCH (09:01)
[2021-08-15] MEDS: Ascorbic Acid 500 mg Chewable Tablet PO SCH (09:01)
[2021-08-15 09:02] VITALS: BP 139/63
[2021-08-15 09:18] VITALS: TEMP 97.4
[2021-08-15 12:34] LABS: Vancomycin, Random 17.3 ug/mL (See Comment)
[2021-08-15 12:35] LABS: Anion Gap 16 mmol/L (10-20); BUN (Urea Nitrogen) 12 mg/dL (8.4-25.7); Calc. Creatinine Clearance 71 mL/min (70-130); Calcium 7.6 mg/dL (7.8-10.44); Carbon Dioxide 18 mmol/L (23-31); Chloride 107 mmol/L (98-107); Glucose 251 mg/dL (83-110); Potassium 3.7 mmol/L (3.5-5.1); Sodium 137 mmol/L (136-145)
[2021-08-15] MEDS ORDERED: Magnesium 2 GM/50 ML 2 GM in Premix Bag 1 BAG IVPB SCH (13:00)
[2021-08-15] MEDS ORDERED: Vancomycin 1 GM in Premix Bag 1 BAG IVPB SCH (14:00)
== END 2021-08-15 17:20 | DRG 193 ==
LOC: ERS 09:51 → ERHOLD 13:51 → 2NO 16:35 → OBSVTOIN 08-13 09:48 → MSONC 08-13 11:43
PROVIDERS: ADMIT Internal Medicine; ATTEND Internal Medicine
PROC: 02HV33Z Insertion of Infusion Device into Superior Vena Cava, Percutaneous Approach (ICD-10-PCS; principal; 2021-08-13)
PROC: B5181ZA Fluoroscopy of Superior Vena Cava using Low Osmolar Contrast, Guidance (ICD-10-PCS; 2021-08-13)
PROC: 02PYX3Z Removal of Infusion Device from Great Vessel, External Approach (ICD-10-PCS; 2021-08-13)
DX: J13 Pneumonia due to Streptococcus pneumoniae (principal); I50.23 Acute on chronic systolic (congestive) heart failure; K80.00 Calculus of gallbladder with acute cholecystitis without obstruction; M86.8X8 Other osteomyelitis, other site; Z66 Do not resuscitate; Z20.822 Contact with and (suspected) exposure to COVID-19; E87.6 Hypokalemia; N40.0 Benign prostatic hyperplasia without lower urinary tract symptoms; D64.9 Anemia, unspecified; E11.69 Type 2 diabetes mellitus with other specified complication; I11.0 Hypertensive heart disease with heart failure; M10.9 Gout, unspecified; F03.90 Unspecified dementia, unspecified severity, without behavioral disturbance, psychotic disturbance, mood disturbance, and anxiety; R13.10 Dysphagia, unspecified; L89.159 Pressure ulcer of sacral region, unspecified stage; L89.629 Pressure ulcer of left heel, unspecified stage; L89.619 Pressure ulcer of right heel, unspecified stage; Z96.641 Presence of right artificial hip joint; Z90.79 Acquired absence of other genital organ(s); Z90.49 Acquired absence of other specified parts of digestive tract; Z91.041 Radiographic dye allergy status; Z79.82 Long term (current) use of aspirin; Z79.899 Other long term (current) drug therapy; Z85.46 Personal history of malignant neoplasm of prostate
CPT/HCPCS: 36415; 36416; 36430; 36584; 71045; 80048; 80053; 80202; 83036; 83605; 83735; 83880; 85025; 86850; 86900; 86901; 87040; 93005; 96365; 96375; 96376; C1751; G0378; J0696; J1644; J1940; J3370; J3475; J3480; J3490; J7050; P9016; U0002